=== PATIENT | female | born 1975 ===

== ENCOUNTER 2017-05-07 13:42 | Emergency (ER) | payer OTHER ==
[2017-05-07 13:50] VITALS: RESP 16
[2017-05-07] MEDS ORDERED: Sodium Chloride 0.9% 500 ML IV ONE (14:05)
--- NOTE | 2017-05-07 14:20 | ED PDOC ---
HPI: Abdomen Time Seen by Provider: 05/07/17 13:53 Chief Complaint (Nursing): Abdominal Pain Chief Complaint (Provider): Abdominal Pain History Per: Patient History/Exam Limitations: no limitations Onset/Duration Of Symptoms: Days (x2 days) Current Symptoms Are (Timing): Still Present Additional Complaint(s): 41 y/o female presents to the emergency department with a complaint of an epigastric abdominal pain x2 days. Associated with fever and vomiting. Describes pain is band-like that reaches to the right side upper back. Denies flank pain, diarrhea, constipation, dysuria, hematuria, vaginal bleeding, or discharge. Past Medical History Reviewed: Historical Data, Nursing Documentation, Vital Signs Vital Signs: Last Vital Signs Temp 100.0 F H 05/07/17 13:47 Pulse 82 05/07/17 13:47 Resp 16 05/07/17 13:47 BP 143/94 H 05/07/17 13:47 Pulse Ox 96 05/07/17 17:06 - Medical History PMH: No Chronic Diseases - Surgical History Surgical History: No Surg Hx - Family History Family History: States: Unknown Family Hx - Social History Current smoker - smoking cessation education provided: No Alcohol: None Drugs: Denies - Home Medications Home Medications: Ambulatory Orders Medication Instructions Recorded Famotidine [Pepcid] 20 mg PO BID #20 tab 12/10/14 Ondansetron [Zofran Odt] 4 mg PO Q8 #12 odt 12/18/14 Oxycodone HCl/Acetaminophen 1 tab PO Q6 PRN #12 tab 12/18/14 [Percocet 325 mg-5 mg] - Allergies Allergies/Adverse Reactions: Allergies Allergy/AdvReac Type Severity Reaction Status Date / Time No Known Allergies Allergy Verified 12/17/14 20:50 Review of Systems ROS Statement: Except As Marked, All Systems Reviewed And Found Negative Constitutional: Positive for: Fever Gastrointestinal: Positive for: Vomiting, Abdominal Pain. Negative for: Diarrhea, Constipation Genitourinary Female: Negative for: Dysuria, Vaginal Discharge, Vaginal Bleeding Musculoskeletal: Positive for: Back Pain (Right-sided Flank Pain) Physical Exam - Reviewed Nursing Documentation Reviewed: Yes Vital Signs Reviewed: Yes - Physical Exam Appears: Positive for: Non-toxic, No Acute Distress Head Exam: Positive for: ATRAUMATIC, NORMAL INSPECTION, NORMOCEPHALIC Skin: Positive for: Normal Color, Warm, Dry Neck: Positive for: Normal, Supple Cardiovascular/Chest: Positive for: Regular Rate, Rhythm. Negative for: Murmur Respiratory: Positive for: Normal Breath Sounds. Negative for: Accessory Muscle Use, Respiratory Distress Gastrointestinal/Abdominal: Positive for: Soft, Tenderness (RUQ tenderness and positive Beck's Sign). Negative for: Normal Exam - Laboratory Results Result Diagrams: 05/07/17 15:00 05/07/17 15:00 - ECG O2 Sat by Pulse Oximetry: 96 (RA) Pulse Ox Interpretation: Normal Medical Decision Making Medical Decision Making: Time: 13:59 Initial impression: RUQ Abdominal Pain concerning for cholecystitis Initial plan: CMP Lipase Magnesium Phosphorous CBC w/ diff Toradol 30 mg IVP Sodium Chloride 500 ml/hr IV Zofran 4 mg IVP Urine Preg Urinalysis Abdomen US Time: 02:58 negative. UA shows small blood (patient currently on menses) but negative leukocytes and nitrates. Time: 16:42 --Abdomen US FINDINGS: LIVER: Measures 17 cm. Hepatopedal blood flow. Fatty infiltration manifest ultrasonographically as increased echogenicity of the liver parenchyma. Complex cystic mass 12.5 x 12.8 x 13.2 cm containing debris. On the prior CT scan the mass measures 13 x 13.2 x 11.3 cm. GALLBLADDER: Cholelithiasis. Negative study for gallbladder wall thickening, pericholecystic fluid, sonographic Beck's sign.Incidental finding(s): Gallbladder sludge. COMMON BILE DUCT: Measures 4.4 mm. No stones. No dilatation. PANCREAS: Obscured by overlying bowel gas. Non diagnostic assessment of the pancreas. RIGHT KIDNEY: Measures 4.2 x 11.8cm. Normal echogenicity. No calculus, mass, or hydronephrosis. LEFT KIDNEY: Measures 5.6 x 12.6cm. Normal echogenicity. No calculus, mass, or hydronephrosis. SPLEEN: Normal in size and contour. No mass. AORTA: No aneurysmal dilatation. IVC: Unremarkable. OTHER FINDINGS: None. IMPRESSION: "Cholelithiasis. No sonographic evidence of acute cholecystitis. She approximately stable cyst occupying most of the left hepatic lobe." 5:04PM Patient reports that pain is resolved. She is tolerating po and repeat abdominal exam is soft NT/ND. Will dc Scribe Attestation: Documented by Ashely Dager, acting as a scribe for Lesa Isidro MD. Provider Scribe Attestation: All medical record entries made by the Scribe were at my direction and personally dictated by me. I have reviewed the chart and agree that the record accurately reflects my personal performance of the history, physical exam, medical decision making, and the department course for this patient. I have also personally directed, reviewed, and agree with the discharge instructions and disposition. Disposition - Clinical Impression Clinical Impression: Cholecystitis - Disposition Referrals: Charles Reich MD [Staff Provider] - Disposition: Routine/Home Disposition Time: 16:15 Condition: GOOD Additional Instructions: Follow up with general surgery for elective cholecystectomy. Return to ED if condition worsens. Instructions: Cholecystitis (ED), Gallstones (ED) Forms: [facility] (Maltese), [facility] (Mongolian) Print Language: FAROESE
[2017-05-07 15:24] LABS: BASO % 0.5 % (0.0-2.0); EOS # 0.1 K/uL (0.0-0.7); EOS % 0.8 % (0.0-4.0); HEMATOCRIT 31.7 % (34.0-47.0); LYMPH # 2.2 K/uL (1.0-4.3); LYMPH % 27.9 % (20.0-40.0); MEAN CELL VOLUME 90.3 fl (81.0-99.0); MEAN CORPUSCULAR HEMOGLOBIN 30.1 pg (27.0-31.0); MEAN CORPUSCULAR HGB CONC 33.3 g/dL (33.0-37.0); MEAN PLATELET VOLUME 7.7 fl (7.2-11.7); MONO # 0.8 K/uL (0.0-0.8); MONO % 9.9 % (0.0-10.0); NEUT # 4.7 K/uL (1.8-7.0); NEUT % 60.9 % (50.0-75.0); NRBC % 0.1 % (0.0-0.0); WHITE BLOOD COUNT 7.8 K/uL (4.8-10.8)
[2017-05-07 15:30] LABS: RBC URINE 4 /hpf (0-3); URINE BILIRUBIN NEGATIVE (NEGATIVE); URINE BLOOD SMALL (NEGATIVE); URINE COLOR AMBER (YELLOW); URINE GLUCOSE (UA) NEG (Normal); URINE KETONE NEGATIVE (NEGATIVE); URINE LEUKOCYTE ESTERASE NEG Leu/uL (Negative); URINE PROTEIN NEGATIVE (NEGATIVE); WBC URINE 3 /hpf (0-5)
[2017-05-07 15:30] LABS: ALKALINE PHOSPHATASE 109 U/L (38-126); ALT/SGPT 55 U/L (9-52); AST/SGOT 31 U/L (14-36); BLOOD UREA NITROGEN 11 mg/dl (7-17); CALCIUM 8.7 mg/dL (8.4-10.2); CARBON DIOXIDE 28 mmol/L (22-30); CHLORIDE 101 mmol/L (98-107); GFR AFRICAN-AMERICAN > 60; GLUCOSE,RANDOM 173 mg/dL (65-105); LIPASE 77 U/L (23-300); MAGNESIUM 2.1 MG/DL (1.6-2.3); PHOSPHOROUS 3.7 mg/dl (2.5-4.5); POTASSIUM 4.1 MMOL/L (3.6-5.0); SODIUM 138 mmol/l (132-148); TOTAL PROTEIN 7.5 G/DL (6.3-8.2)
--- NOTE | 2017-05-07 16:43 | US ---
HISTORY: RUQ pain COMPARISON: 12/18/2014 CT abdomen and pelvis TECHNIQUE: Sonographic evaluation of the abdomen. FINDINGS: LIVER: Measures 17 cm. Hepatopedal blood flow. Fatty infiltration manifest ultrasonographically as increased echogenicity of the liver parenchyma. Complex cystic mass 12.5 x 12.8 x 13.2 cm containing debris. On the prior CT scan the mass measures 13 x 13.2 x 11.3 cm. GALLBLADDER: Cholelithiasis. Negative study for gallbladder wall thickening, pericholecystic fluid, sonographic Beck's sign.Incidental finding(s): Gallbladder sludge. COMMON BILE DUCT: Measures 4.4 mm. No stones. No dilatation. PANCREAS: Obscured by overlying bowel gas. Non diagnostic assessment of the pancreas. RIGHT KIDNEY: Measures 4.2 x 11.8cm. Normal echogenicity. No calculus, mass, or hydronephrosis. LEFT KIDNEY: Measures 5.6 x 12.6cm. Normal echogenicity. No calculus, mass, or hydronephrosis. SPLEEN: Normal in size and contour. No mass. AORTA: No aneurysmal dilatation. IVC: Unremarkable. OTHER FINDINGS: None. IMPRESSION: Cholelithiasis. No sonographic evidence of acute cholecystitis. She approximately stable cyst occupying most of the left hepatic lobe.
[2017-05-07 17:22] VITALS: BP 134/77; PULSE 72; TEMP 99.3; O2SAT 98
== END 2017-05-07 17:29 | disposition home or self-care (01) ==
LOC: H.ER 13:42
DX: K80.20 Calculus of gallbladder without cholecystitis without obstruction (principal); R50.9 Fever, unspecified; R11.10 Vomiting, unspecified
CPT/HCPCS: 76700; 80053; 81003; 81025; 83690; 83735; 84100; 85025; 96374; 96375; 99283; J1885; J2405; J7040

== ENCOUNTER 2017-05-08 07:06 | Inpatient (IN) | payer OTHER ==
[2017-05-08] MEDS ORDERED: Sodium Chloride 0.9% 1,000 ML IV STA (07:24)
[2017-05-08] MEDS ORDERED: Iohexol 240 (50 ml) PO ONE (07:31)
--- NOTE | 2017-05-08 07:45 | ED PDOC ---
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 denies: Diarrhea Exacerbating Factors: None Alleviating Factors: None Last Bowel Movement: Today Additional Complaint(s): 41yo female represents to ED with RUQ and upper abd pain, now associated w chills, nausea/vomiting. States was seen in ED yesterday told she had gallstones , felt better on discharge but pain returned at 3am, chills started shortly thereafter. Past Medical History Reviewed: Historical Data, Nursing Documentation, Vital Signs Vital Signs: Last Vital Signs Temp 101.2 F H 05/08/17 08:01 Pulse 95 H 05/08/17 07:19 Resp 16 05/08/17 07:19 BP 117/73 05/08/17 07:19 Pulse Ox 98 05/08/17 07:46 - Medical History PMH: No Chronic Diseases - Surgical History Surgical History: No Surg Hx - Family History Family History: States: Unknown Family Hx - Living Arrangements Living Arrangements: With Family - Social History Current smoker - smoking cessation education provided: No - Home Medications Home Medications: Ambulatory Orders Medication Instructions Recorded Famotidine [Pepcid] 20 mg PO BID #20 tab 12/10/14 Ondansetron [Zofran Odt] 4 mg PO Q8 #12 odt 12/18/14 Oxycodone HCl/Acetaminophen 1 tab PO Q6 PRN #12 tab 12/18/14 [Percocet 325 mg-5 mg] - Allergies Allergies/Adverse Reactions: Allergies Allergy/AdvReac Type Severity Reaction Status Date / Time No Known Allergies Allergy Verified 05/08/17 07:19 Review of Systems Constitutional: Positive for: Chills, Weakness Cardiovascular: Negative for: Chest Pain, Palpitations Respiratory: Negative for: Cough, Shortness of Breath Gastrointestinal: Positive for: Nausea, Vomiting, Abdominal Pain. Negative for : Diarrhea, Hematochezia, Hematemesis Genitourinary Female: Negative for: Dysuria Musculoskeletal: Positive for: Back Pain. Negative for: Neck Pain, Shoulder Pain Skin: Negative for: Rash, Lesions, Jaundice Neurological: Negative for: Weakness, Numbness, Dizziness Physical Exam - Reviewed Nursing Documentation Reviewed: Yes Vital Signs Reviewed: Yes - Physical Exam Appears: Positive for: No Acute Distress, Uncomfortable (+rigors) Head Exam: Positive for: ATRAUMATIC, NORMAL INSPECTION, NORMOCEPHALIC Skin: Positive for: Normal Color, Warm, DRY Eye Exam: Positive for: Normal appearance, EOMI, PERRL. Negative for: Scleral icterus ENT: Positive for: Normal ENT Inspection Neck: Positive for: Normal, Painless ROM Cardiovascular/Chest: Positive for: Regular Rate, Rhythm Respiratory: Positive for: CNT, Normal Breath Sounds Gastrointestinal/Abdominal: Positive for: Bowel Sounds, Soft, Tenderness (RUQ/ mid abdomen). Negative for: Distended, Rebound Back: Positive for: Normal Inspection Extremity: Positive for: Normal ROM Neurologic/Psych: Positive for: Alert, Oriented. Negative for: Motor/Sensory Deficits - Laboratory Results Result Diagrams: 05/08/17 08:20 05/08/17 08:20 - ECG O2 Sat by Pulse Oximetry: 98 Medical Decision Making Medical Decision Making: given fever, known hx gallstones, workup for sepsis initiated w bloodwork, cultures, lactate, CT abd pelv and IVF/antiemetic/ pain control/ tylenol. Labs reviewed Initial lactate elevated 2.1 WBC normal Alk Phos trending up from yesterday CT imaging reveals cholelithiasis and very large cyst in liver. I discussed w radiologist Dr Xiong- does not appear infected as homogenous, no septations, thin walled. Unclear chronicity of cyst. Discussed w Dr Corrales, may need hepatobiliary specialist- admit hospitalist Dr Wright. Zosyn initiated after cultures obtained. Repeat 3hr lactate improving. Disposition - Clinical Impression Clinical Impression: Severe sepsis, Cholelithiasis, Hepatic cyst - Patient ED Disposition Is Patient to be Admitted: Yes Counseled Patient/Family Regarding: Studies Performed, Diagnosis - Disposition Disposition Time: 09:35 Condition: FAIR - Pt Status Changed To: Hospital Disposition Of: Inpatient - Admit Certification Admit to Inpatient:: After my assessment, the patient will require hospitalization for at least two midnights. This is because of the severity of symptoms shown, intensity of services needed, and/or the medical risk in this patient being treated as an outpatient. - POA Present On Arrival: None
[2017-05-08 07:58] LABS: VENOUS BLOOD GAS BASE EXCESS 2.8 mmol/L (0.0-2.0); VENOUS BLOOD GAS PCO2 52 mmHg (40-60); VENOUS BLOOD PH 7.36 (7.32-7.43)
[2017-05-08 08:32] LABS: BASO % 0.3 % (0.0-2.0); EOS % 0.3 % (0.0-4.0); LYMPH % 10.3 % (20.0-40.0); MEAN PLATELET VOLUME 7.8 fl (7.2-11.7); MONO # 0.3 K/uL (0.0-0.8); MONO % 3.1 % (0.0-10.0); NEUT # 8.3 K/uL (1.8-7.0); WHITE BLOOD COUNT 9.7 K/uL (4.8-10.8)
[2017-05-08] MEDS ORDERED: Iohexol 300 100 ML IJ ONE (08:43)
[2017-05-08] MEDS ORDERED: Sodium Chloride 0.9% 50 ML IV ONE (08:44)
[2017-05-08 08:46] LABS: ALKALINE PHOSPHATASE 147 U/L (38-126); ALT/SGPT 49 U/L (9-52); AST/SGOT 36 U/L (14-36); BILIRUBIN,TOTAL 1.2 mg/dl (0.2-1.3); BLOOD UREA NITROGEN 9 mg/dl (7-17); CALCIUM 8.9 mg/dL (8.4-10.2); CARBON DIOXIDE 25 mmol/L (22-30); CHLORIDE 102 mmol/L (98-107); GFR AFRICAN-AMERICAN > 60; GLUCOSE,RANDOM 183 mg/dL (65-105); LIPASE 100 U/L (23-300); POTASSIUM 4.4 MMOL/L (3.6-5.0); SODIUM 141 mmol/l (132-148)
--- NOTE | 2017-05-08 09:37 | CT ---
PROCEDURE: CT abdomen pelvis dated 05/08/2017. HISTORY: RUQ pain, rigors, gallstones on US COMPARISON: Comparison made with prior CT scan abdomen pelvis 12/18/2014 TECHNIQUE: Contiguous axial images of the abdomen and pelvis performed in standard fashion following oral and intravenous injection of approximately 99 cc Omnipaque 300 contrast material. . Coronal and Sagittal reformats generated. This CT exam was performed using one or more of the following dose reduction techniques: Automated exposure control, adjustment of the mA and/or kV according to patient size, and/or use of iterative reconstruction technique. Radiation dose: Total exam DLP = 2335.35 mGy-cm. FINDINGS: LOWER THORAX: Lung bases are clear. No infiltrate effusion or basilar pneumothorax. LIVER: Re- demonstrated is a large elliptical shaped unilocular cyst left lobe liver that measures approximately 13.4 x 11.8 x 13.2 cm. . The cyst is surrounded by a thin wall with no evidence of internal septations, calcifications or nodularity. . Liver is mildly enlarged measuring approximately 22.55 cm in CC dimension. Mild diffuse fatty hepatic infiltration. GALLBLADDER AND BILE DUCTS: Multiple tiny intraluminal gallbladder calculi again noted. PANCREAS: The previously noted small 3 mm low-attenuation focus tail of the pancreas is not appreciated on this exam. . SPLEEN: The spleen exhibits normal size and attenuation pattern without mass collection or calcification. ADRENALS: No adrenal lesions. KIDNEYS AND URETERS: Kidneys demonstrate symmetric size. No evidence of nephrolithiasis or hydronephrosis. BLADDER: Urinary bladder is incompletely distended which presumably accounts for thick-walled appearance. Possibility of a cystitis not excluded. REPRODUCTIVE: Uterus unremarkable. APPENDIX: Normal appendix. BOWEL: The evaluation of the bowel is limited due to incomplete opacification. Stomach is distended with oral contrast material and air. Visualized loops small bowel exhibit normal contour and caliber. No evidence acute mechanical small bowel obstruction. Stool and air seen throughout the colon. No definitive mural wall thickening. PERITONEUM: No evidence of free intraperitoneal air or fluid. Previously noted free fluid within the pelvis on prior CT scan resolved. Small fat containing umbilical hernia again noted. LYMPH NODES: Unremarkable. No enlarged lymph nodes. VASCULATURE: Unremarkable. No aortic aneurysm. BONES: No fracture or destructive lesion. OTHER FINDINGS: None. IMPRESSION: Large slightly elliptical shaped the unilocular shaped cyst left lobe liver essentially unchanged from prior study. Hepatomegaly with mild fatty hepatic infiltration. Cholelithiasis. Small fat containing ventral wall hernia.
[2017-05-08 10:01] LABS: RBC URINE 11 /hpf (0-3); URINE BILIRUBIN NEGATIVE (NEGATIVE); URINE BLOOD MODERATE (NEGATIVE); URINE COLOR YELLOW (YELLOW); URINE GLUCOSE (UA) NEG (Normal); URINE KETONE NEGATIVE (NEGATIVE); URINE LEUKOCYTE ESTERASE NEG Leu/uL (Negative); URINE PROTEIN NEGATIVE (NEGATIVE)
[2017-05-08] MEDS ORDERED: Piperacillin/Tazobact 4.5 GM in Sodium Chloride 0.9% 100 ML IVPB STA (10:02)
[2017-05-08 11:00] LABS: VENOUS BLOOD GAS PCO2 40 mmHg (40-60); VENOUS BLOOD PH 7.43 (7.32-7.43)
--- NOTE | 2017-05-08 11:38 | CP.PCM.HP ---
History of Present Illness - History of Present Illness History of Present Illness: 41 yo female with no significant PMH came in complaining of persistent RUQ and epigastric pain radiating to the back since 5 days ago accompanied with fever and nausea. She was seen in the ER yesterday and was discharged with a diagnosis of cholecystitis. She was advised to follow up with Dr Reich for an elective cholecystectomy. Her condition did not improved and now came back to the ER with diaphoresis accompanied with fever, abdominal pain and nausea. Present on Admission - Present on Admission Any Indicators Present on Admission: No History of DVT/PE: No History of Uncontrolled Diabetes: No Urinary Catheter: No Decubitus Ulcer Present: No Review of Systems - Review of Systems All systems: reviewed and no additional remarkable complaints except (aside from those mentioned above, 12 point system review were negative by me) Past Patient History - Tetanus Immunizations Tetanus Immunization: Unknown - Past Medical History & Family History Past Medical History?: No Past Family History: Reviewed and not pertinent - Past Social History Smoking Status: Never Smoked Alcohol: None Drugs: Denies Home Situation {Lives}: With Family - CARDIAC Hx Cardiac Disorders: No - PULMONARY Hx Respiratory Disorders: No - NEUROLOGICAL Hx Neurological Disorder: No - HEENT Hx HEENT Problems: No - RENAL Hx Chronic Kidney Disease: No - ENDOCRINE/METABOLIC Hx Endocrine Disorders: No - HEMATOLOGICAL/ONCOLOGICAL Hx Blood Disorders: No - INTEGUMENTARY Hx Dermatological Problems: No - MUSCULOSKELETAL/RHEUMATOLOGICAL Hx Musculoskeletal Disorders: No - GASTROINTESTINAL Hx Gastrointestinal Disorders: No Other/Comment: cholelithiasis - GENITOURINARY/GYNECOLOGICAL Hx Genitourinary Disorders: No - PSYCHIATRIC Hx Psychophysiologic Disorder: No Hx Substance Use: No - SURGICAL HISTORY Hx Surgeries: No - ANESTHESIA Hx Anesthesia: No Meds Allergies/Adverse Reactions: Allergies Allergy/AdvReac Type Severity Reaction Status Date / Time No Known Allergies Allergy Verified 05/08/17 07:19 Physical Exam - Constitutional Appears: No Acute Distress - Head Exam Head Exam: ATRAUMATIC - Eye Exam Eye Exam: absent: Scleral icterus - ENT Exam ENT Exam: Mucous Membranes Moist - Neck Exam Neck exam: Negative for: Meningismus - Respiratory Exam Respiratory Exam: absent: Rhonchi, Wheezes, Respiratory Distress - Cardiovascular Exam Cardiovascular Exam: REGULAR RHYTHM, +S1, +S2 - GI/Abdominal Exam GI & Abdominal Exam: Soft, Tenderness (tenderness on palpation mainly on epigastric region). absent: Guarding, Rebound - Rectal Exam Rectal Exam: Deferred - Extremities Exam Extremities exam: Negative for: calf tenderness, pedal edema - Back Exam Back exam: NORMAL INSPECTION - Neurological Exam Neurological exam: Alert, Oriented x3 - Psychiatric Exam Psychiatric exam: Normal Affect - Skin Skin Exam: Dry, Intact Results - Vital Signs Recent Vital Signs: Last Vital Signs Temp 101.2 F H 05/08/17 08:01 Pulse 95 H 05/08/17 07:19 Resp 16 05/08/17 07:19 BP 117/73 05/08/17 07:19 Pulse Ox 98 05/08/17 11:21 - Labs Result Diagrams: 05/08/17 08:20 05/08/17 08:20 Labs: Laboratory Results - last 24 hr 05/08/17 10:55 pO2 55 VBG pH 7.43 VBG pCO2 40 VBG HCO3 26.3 VBG Total CO2 27.7 VBG O2 Sat (Calc) 95.4 H VBG Base Excess 2.0 VBG Potassium 3.8 Sodium 135.0 Chloride 103.0 Glucose 164 H Lactate 0.7 FiO2 21.0 Venous Blood Potassium 3.8 Assessment & Plan (1) Sepsis Status: Acute Comment: admit to telemetry. blood culture x 2. Zosyn 3.375gm IV q 6hrs. Flagyl 500mg IV q 8hrs (2) Cholecystitis Status: Acute Comment: Morphine 2mg IV q 4hrs prn for pain. zofran 4mg IV q 4hrs prn for nausea. continue Zosyn and Flagyl. surgical consult with Dr Reich (3) DVT prophylaxis Status: Acute Comment: venodyne boots while on bed
[2017-05-08] MEDS: Piperacillin/Tazobact 3.375 GM in Sodium Chloride 0.9% 100 ML IVPB SCH ×2 (15:13→22:18)
[2017-05-08] MEDS: metroNIDAZOLE 500mg/100ml NS 100 ML IVPB SCH ×2 (15:13→17:01)
[2017-05-08] MEDS: Sodium Chloride 0.9% 1,000 ML IV SCH ×2 (16:41→22:16)
--- NOTE | 2017-05-08 19:01 | CP.PCM.CON ---
<Sukhjinder Francis - Last Filed: 05/08/17 18:56> History of Present Illness - History of Present Illness History of Present Illness: Surgery 41 yo female with no significant PMH came in complaining of persistent RUQ and epigastric pain radiating to the back that started yesterday. accompanied with fever and nausea. She was seen in the ER yesterday and was discharged with a diagnosis of cholecystitis. She was advised to follow up with Dr Reich for an elective cholecystectomy. Her condition did not improved and now came back to the ER with diaphoresis accompanied with fever, abdominal pain, nausea and vomiting. Non bilious non bloody. Denies D/sick contact/ recent travel/CP/SOB. Pt is from [place]. Reports that this is the first time having these symptoms. Pt had fever of 101.2. CT of abd shows large 14cm uniloculated liver cyst and gallstones. Fat containing ventral hernia. Tibili is 1.4. Surgery is consulted to evaluate for cholecystitis and liver cyst Review of Systems - Review of Systems Review of Systems: See HPI Past Patient History - Tetanus Immunizations Tetanus Immunization: Unknown - Past Medical History & Family History Past Medical History?: No - Past Social History Smoking Status: Never Smoked - CARDIAC Hx Cardiac Disorders: No - PULMONARY Hx Respiratory Disorders: No - NEUROLOGICAL Hx Neurological Disorder: No - HEENT Hx HEENT Problems: No - RENAL Hx Chronic Kidney Disease: No - ENDOCRINE/METABOLIC Hx Endocrine Disorders: No - HEMATOLOGICAL/ONCOLOGICAL Hx Blood Disorders: No - INTEGUMENTARY Hx Dermatological Problems: No - MUSCULOSKELETAL/RHEUMATOLOGICAL Hx Musculoskeletal Disorders: No Hx Falls: No - GASTROINTESTINAL Hx Gastrointestinal Disorders: No Other/Comment: cholelithiasis - GENITOURINARY/GYNECOLOGICAL Hx Genitourinary Disorders: No - PSYCHIATRIC Hx Psychophysiologic Disorder: No Hx Substance Use: No - SURGICAL HISTORY Hx Surgeries: No - ANESTHESIA Hx Anesthesia: No Meds Allergies/Adverse Reactions: Allergies Allergy/AdvReac Type Severity Reaction Status Date / Time No Known Allergies Allergy Verified 05/08/17 07:19 - Medications Medications: Current Medications Acetaminophen (Tylenol 650 Mg Supp) 650 mg [place] Q6 PRN PRN Reason: Fever >100.4 F Hydromorphone HCl (Dilaudid) 1 mg IVP Q4 PRN PRN Reason: Pain, moderate (4-7) Last Admin: 05/08/17 16:39 Dose: 1 mg Piperacillin Sod/Tazobactam (Sod 3.375 gm/ Sodium Chloride) 100 mls @ 100 mls/ hr IVPB Q6 [facility] Last Admin: 05/08/17 15:13 Dose: 100 mls/hr Metronidazole (Flagyl 500mg/100ml Ns) 100 mls @ 100 mls/hr IVPB Q8 [facility] Last Admin: 05/08/17 17:01 Dose: Not Given Sodium Chloride (Sodium Chloride 0.9%) 1,000 mls @ 150 mls/hr IV .Q6H40M [facility] Stop: 05/09/17 13:54 Last Admin: 05/08/17 16:41 Dose: 150 mls/hr Ondansetron HCl (Zofran Inj) 4 mg IVP Q6 PRN PRN Reason: Nausea/Vomiting Last Admin: 05/08/17 13:25 Dose: 4 mg Pantoprazole Sodium (Protonix Inj) 40 mg IVP DAILY [facility] Physical Exam - Constitutional Appears: In Acute Distress - Head Exam Head Exam: ATRAUMATIC, NORMAL INSPECTION, NORMOCEPHALIC - Eye Exam Eye Exam: EOMI, Normal appearance, PERRL Pupil Exam: NORMAL ACCOMODATION, PERRL - ENT Exam ENT Exam: Mucous Membranes Moist, Normal Exam - Neck Exam Neck exam: Positive for: Normal Inspection - Respiratory Exam Respiratory Exam: Clear to Auscultation Bilateral, NORMAL BREATHING PATTERN - Cardiovascular Exam Cardiovascular Exam: REGULAR RHYTHM - GI/Abdominal Exam GI & Abdominal Exam: Normal Bowel Sounds, Soft, Tenderness. absent: Distended, Firm, Guarding Additional comments: RUQ TTP - Extremities Exam Extremities exam: Positive for: normal inspection - Back Exam Back exam: NORMAL INSPECTION, tenderness. absent: CVA tenderness (L), CVA tenderness (R) - Neurological Exam Neurological exam: Alert, CN II-XII Intact, Normal Gait, Oriented x3, Reflexes Normal - Psychiatric Exam Psychiatric exam: Normal Affect, Normal Mood - Skin Skin Exam: Diaphoretic, Intact, Normal Color, Warm Results - Vital Signs Recent Vital Signs: Last Vital Signs Temp 98.6 F 05/08/17 17:36 Pulse 72 05/08/17 17:36 Resp 20 05/08/17 17:36 BP 137/83 05/08/17 17:36 Pulse Ox 97 05/08/17 17:36 - Labs Result Diagrams: 05/08/17 08:20 05/08/17 08:20 Labs: Laboratory Results - last 24 hr 05/08/17 10:55 pO2 55 VBG pH 7.43 VBG pCO2 40 VBG HCO3 26.3 VBG Total CO2 27.7 VBG O2 Sat (Calc) 95.4 H VBG Base Excess 2.0 VBG Potassium 3.8 Sodium 135.0 Chloride 103.0 Glucose 164 H Lactate 0.7 FiO2 21.0 Venous Blood Potassium 3.8 Assessment & Plan - Assessment and Plan (Free Text) Assessment: RUQ pain 2/2 ch[address] : large liver cyst , gallstones, dilated GB Febrile -Hepatobiliary surgery consult to evaluate liver cyst: r/o echinoccocal cyst, hemangioma -MRI of the liver -Echinococcus antibody -Monitor labs -ABX -IVF DW attending <Charles Reich - Last Filed: 05/08/17 21:14> Meds - Medications Medications: Current Medications Acetaminophen (Tylenol 650 Mg Supp) 650 mg [place] Q6 PRN PRN Reason: Fever >100.4 F Hydromorphone HCl (Dilaudid) 1 mg IVP Q4 PRN PRN Reason: Pain, moderate (4-7) Last Admin: 05/08/17 16:39 Dose: 1 mg Piperacillin Sod/Tazobactam (Sod 3.375 gm/ Sodium Chloride) 100 mls @ 100 mls/ hr IVPB Q6 [facility] Last Admin: 05/08/17 15:13 Dose: 100 mls/hr Metronidazole (Flagyl 500mg/100ml Ns) 100 mls @ 100 mls/hr IVPB Q8 [facility] Last Admin: 05/08/17 17:01 Dose: Not Given Sodium Chloride (Sodium Chloride 0.9%) 1,000 mls @ 150 mls/hr IV .Q6H40M [facility] Stop: 05/09/17 13:54 Last Admin: 05/08/17 16:41 Dose: 150 mls/hr Ondansetron HCl (Zofran Inj) 4 mg IVP Q6 PRN PRN Reason: Nausea/Vomiting Last Admin: 05/08/17 13:25 Dose: 4 mg Pantoprazole Sodium (Protonix Inj) 40 mg IVP DAILY [facility] Results - Vital Signs Recent Vital Signs: Last Vital Signs Temp 98.6 F 05/08/17 17:36 Pulse 88 05/08/17 20:32 Resp 20 05/08/17 17:36 BP 137/83 05/08/17 17:36 Pulse Ox 97 05/08/17 17:36 - Labs Result Diagrams: 05/08/17 08:20 05/08/17 08:20 Labs: Laboratory Results - last 24 hr 05/08/17 10:55 pO2 55 VBG pH 7.43 VBG pCO2 40 VBG HCO3 26.3 VBG Total CO2 27.7 VBG O2 Sat (Calc) 95.4 H VBG Base Excess 2.0 VBG Potassium 3.8 Sodium 135.0 Chloride 103.0 Glucose 164 H Lactate 0.7 FiO2 21.0 Venous Blood Potassium 3.8 Attending/Attestation - Attestation I have personally seen and examined this patient.: Yes I have fully participated in the care of the patient.: Yes I have reviewed all pertinent clinical information: Yes Notes (Text): 05/08/17 21:13 Pt was seen and examined at bedside Agree with above note and assessment Pt with Cholelithiasis and Large Liver Cyst Labs and radiology reviewed. Repeat LFTs IV antibiotics Consult Hepatobilliary surgeon Plan d.w pt in detail Risk and benefit explained in detail.
[2017-05-09] MEDS: metroNIDAZOLE 500mg/100ml NS 100 ML IVPB SCH ×3 (00:44→16:34)
[2017-05-09] MEDS: Piperacillin/Tazobact 3.375 GM in Sodium Chloride 0.9% 100 ML IVPB SCH ×4 (03:18→22:28)
[2017-05-09 08:00] LABS: BASO % 0.2 % (0.0-2.0); EOS % 0.1 % (0.0-4.0); HEMATOCRIT 33.3 % (34.0-47.0); LYMPH # 1.1 K/uL (1.0-4.3); LYMPH % 8.4 % (20.0-40.0); MEAN CELL VOLUME 90.9 fl (81.0-99.0); MEAN CORPUSCULAR HEMOGLOBIN 29.1 pg (27.0-31.0); MEAN CORPUSCULAR HGB CONC 32.1 g/dL (33.0-37.0); MEAN PLATELET VOLUME 8.1 fl (7.2-11.7); MONO # 1.2 K/uL (0.0-0.8); MONO % 9.5 % (0.0-10.0); NEUT # 10.3 K/uL (1.8-7.0); NEUT % 81.8 % (50.0-75.0); PLATELET COUNT 304 K/uL (130-400); RED CELL DISTRIBUTION WIDTH 13.8 % (11.5-14.5); WHITE BLOOD COUNT 12.6 K/uL (4.8-10.8)
--- NOTE | 2017-05-09 09:56 | CP.PCM.PN ---
<Sukhjinder Francis - Last Filed: 05/09/17 09:53> Subjective - Date & Time of Evaluation Date of Evaluation: 05/09/17 Time of Evaluation: 09:54 - Subjective Subjective: Surgery Pt s&e. Pt is febrile. Denies N/V/D/CP/SOB. Pain controlled. + amb. + void. TOlerating CLD. Objective - Vital Signs/Intake and Output Vital Signs (last 24 hours): Temp Pulse Resp BP Pulse Ox 99.3 F 91 H 20 121/78 94 L 05/09/17 08:53 05/09/17 08:53 05/09/17 08:53 05/09/17 08:53 05/09/17 08:53 - Medications Medications: Current Medications Acetaminophen (Tylenol 650 Mg Supp) [address] Q6 PRN PRN Reason: Fever >100.4 F Hydromorphone HCl (Dilaudid) 1 mg IVP Q4 PRN PRN Reason: Pain, moderate (4-7) Last Admin: 05/09/17 05:45 Dose: 1 mg Piperacillin Sod/Tazobactam (Sod 3.375 gm/ Sodium Chloride) 100 mls @ 100 mls/ hr IVPB Q6 [facility] Last Admin: 05/09/17 03:18 Dose: 100 mls/hr Metronidazole (Flagyl 500mg/100ml Ns) 100 mls @ 100 mls/hr IVPB Q8 [facility] Last Admin: 05/09/17 00:44 Dose: 100 mls/hr Sodium Chloride (Sodium Chloride 0.9%) 1,000 mls @ 150 mls/hr IV .Q6H40M [facility] Stop: 05/09/17 13:54 Last Admin: 05/08/17 22:16 Dose: 150 mls/hr Ondansetron HCl (Zofran Inj) 4 mg IVP Q6 PRN PRN Reason: Nausea/Vomiting Last Admin: 05/08/17 22:21 Dose: 4 mg Pantoprazole Sodium (Protonix Inj) 40 mg IVP DAILY [facility] - Labs Labs: 05/09/17 05:30 - Constitutional Appears: No Acute Distress - Head Exam Head Exam: ATRAUMATIC, NORMAL INSPECTION, NORMOCEPHALIC - Eye Exam Eye Exam: EOMI, Normal appearance, PERRL Pupil Exam: NORMAL ACCOMODATION, PERRL - ENT Exam ENT Exam: Mucous Membranes Moist, Normal Exam - Neck Exam Neck Exam: Full ROM, Normal Inspection. absent: Lymphadenopathy - Respiratory Exam Respiratory Exam: Clear to Ausculation Bilateral, NORMAL BREATHING PATTERN - Cardiovascular Exam Cardiovascular Exam: REGULAR RHYTHM, +S1, +S2. absent: Murmur - GI/Abdominal Exam GI & Abdominal Exam: Soft, Tenderness, Normal Bowel Sounds. absent: Distended, Firm Additional comments: Epigastric TTP - Extremities Exam Extremities Exam: Full ROM, Normal Capillary Refill, Normal Inspection. absent : Joint Swelling, Pedal Edema - Back Exam Back Exam: NORMAL INSPECTION - Neurological Exam Neurological Exam: Alert, Awake, CN II-XII Intact, Normal Gait, Oriented x3 - Psychiatric Exam Psychiatric exam: Normal Affect, Normal Mood - Skin Skin Exam: Dry, Intact, Normal Color, Warm Assessment and Plan - Assessment and Plan (Free Text) Assessment: abd pain 2/2 cholelithiasis v Liver cyst CT : large liver cyst , gallstones, dilated GB Febrile Mild leukocytosis -Hepatobiliary surgery consult to evaluate liver cyst: r/o echinoccocal cyst, hemangioma -MRI of the liver -Echinococcus antibody -Monitor labs: CBC , LFT -ABX -IVF DW attending <Charles Reich - Last Filed: 05/09/17 14:20> Objective - Vital Signs/Intake and Output Vital Signs (last 24 hours): Temp Pulse Resp BP Pulse Ox 98.9 F 83 20 111/72 93 L 05/09/17 13:09 05/09/17 13:09 05/09/17 13:09 05/09/17 13:09 05/09/17 13:09 - Medications Medications: Current Medications Acetaminophen (Tylenol 650 Mg Supp) [address] Q6 PRN PRN Reason: Fever >100.4 F Hydromorphone HCl (Dilaudid) 1 mg IVP Q4 PRN PRN Reason: Pain, moderate (4-7) Last Admin: 05/09/17 10:38 Dose: 1 mg Piperacillin Sod/Tazobactam (Sod 3.375 gm/ Sodium Chloride) 100 mls @ 100 mls/ hr IVPB Q6 [facility] Last Admin: 05/09/17 10:24 Dose: 100 mls/hr Metronidazole (Flagyl 500mg/100ml Ns) 100 mls @ 100 mls/hr IVPB Q8 [facility] Vancomycin HCl 1 gm/ Sodium (Chloride) 250 mls @ 166.667 mls/hr IVPB Q12 [facility] Ondansetron HCl (Zofran Inj) 4 mg IVP Q6 PRN PRN Reason: Nausea/Vomiting Last Admin: 05/08/17 22:21 Dose: 4 mg Pantoprazole Sodium (Protonix Inj) 40 mg IVP DAILY [facility] Last Admin: 05/09/17 10:23 Dose: 40 mg - Labs Labs: 05/09/17 05:30 05/09/17 11:05 Attending/Attestation - Attestation I have personally seen and examined this patient.: Yes I have fully participated in the care of the patient.: Yes I have reviewed all pertinent clinical information, including history, physical exam and plan: Yes Notes (Text): 05/09/17 14:19 Pt was seen and examined at bedside Agree with above note and assessment Pt with Cholelithiasis and Liver Cyst MRI/MRCP Repeat LFTs and Lipase NPO, IVF IV antibiotics Plan d/w pt in detail Risk and benefit explained in detail.
[2017-05-09] MEDS: Sodium Chloride 0.9% 1,000 ML IV SCH (10:25)
[2017-05-09 11:03] LABS: NEUTROPHIL 85 % (42-75); TOTAL CELLS COUNTED 100
[2017-05-09 11:52] LABS: ALB/GLOB RATIO 0.9 (1.0-2.1); ALKALINE PHOSPHATASE 170 U/L (38-126); ALT/SGPT 71 U/L (9-52); AST/SGOT 77 U/L (14-36); BILIRUBIN,TOTAL 1.8 mg/dl (0.2-1.3); BLOOD UREA NITROGEN 10 mg/dl (7-17); CALCIUM 8.7 mg/dL (8.4-10.2); CARBON DIOXIDE 27 mmol/L (22-30); CHLORIDE 102 mmol/L (98-107); GFR AFRICAN-AMERICAN > 60; GLUCOSE,RANDOM 138 mg/dL (65-105); SODIUM 139 mmol/l (132-148); TOTAL PROTEIN 7.6 G/DL (6.3-8.2)
--- NOTE | 2017-05-09 12:55 | CP.PCM.PN ---
Subjective - Date & Time of Evaluation Date of Evaluation: 05/09/17 Time of Evaluation: 12:40 - Subjective Subjective: continues to complain of mild pain midepigastric radiating to shoulder tolerating liquid diet HD stable. afebrile. WBC trending up, as well as LFTs and TBILI. added Vancomycin for additional coverage no other complaints at [facility] for MRI liver per surgery Objective - Vital Signs/Intake and Output Vital Signs (last 24 hours): Temp Pulse Resp BP Pulse Ox 99.3 F 91 H 20 121/78 94 L 05/09/17 08:53 05/09/17 08:53 05/09/17 08:53 05/09/17 08:53 05/09/17 08:53 GEN: WDWN, ALERT, COOPERATIVE HEENT: NCAT, PERRL, EOMI HEART: +S1+S2, RRR NO MRG LUNG: CTAB, NO WRR ABD: SOFT BSX4 tender midepigastrium. ND NO HSM NO MASS EXT: WARM, WELL PERFUSED NEURO: AA0X3, STRENGTH AND SENSATION EQUAL AND BILATERAL SKIN: WARM DRY PSYCH: NORMAL MOOD NORMAL AFFECT - Medications Medications: Current Medications Acetaminophen (Tylenol 650 Mg Supp) 650 mg [place] Q6 PRN PRN Reason: Fever >100.4 F Hydromorphone HCl (Dilaudid) 1 mg IVP Q4 PRN PRN Reason: Pain, moderate (4-7) Last Admin: 05/09/17 10:38 Dose: 1 mg Piperacillin Sod/Tazobactam (Sod 3.375 gm/ Sodium Chloride) 100 mls @ 100 mls/ hr IVPB Q6 [facility] Last Admin: 05/09/17 10:24 Dose: 100 mls/hr Sodium Chloride (Sodium Chloride 0.9%) 1,000 mls @ 150 mls/hr IV .Q6H40M [facility] Stop: 05/09/17 13:54 Last Admin: 05/09/17 10:25 Dose: 150 mls/hr Ondansetron HCl (Zofran Inj) 4 mg IVP Q6 PRN PRN Reason: Nausea/Vomiting Last Admin: 05/08/17 22:21 Dose: 4 mg Pantoprazole Sodium (Protonix Inj) 40 mg IVP DAILY [facility] Last Admin: 05/09/17 10:23 Dose: 40 mg - Labs Labs: 05/09/17 05:30 05/09/17 11:05 Assessment and Plan - Assessment and Plan (Free Text) Plan: 41 yo female with no significant PMH came in complaining of persistent RUQ and epigastric pain radiating to the back since 5 days ago accompanied with fever and nausea. She was seen in the ER yesterday and was discharged with a diagnosis of cholecystitis. She was advised to follow up with Dr Reich for an elective cholecystectomy. Her condition did not improved and now came back to the ER with diaphoresis accompanied with fever, abdominal pain and nausea. CT ABDPEL: L slightly elliptical shaped unilocular cyst left lobe liver, unchanged from prior study. Cholelithiasis. Sepsis 2/2 cholecystitis AFEBRILE, mild pain midepigastric radiating to shoulder however WBC trending up, LFTs also trending up mildly 77/71 TBILI elevated today 1.8, normal yesterday blood culture x 2. No growth urine cx <42995 gm+cocci Zosyn 3.375gm IV q 6hrs. Flagyn 500 mg q8H. added Vancomycin today for worsening WBC, LFTs for coverage. Morphine 2mg IV q 4hrs prn for pain. zofran 4mg IV q 4hrs prn for nausea. surgical consult with Dr Reich Liver Cyst Hepatobiliary Surgical Consult with Dr. Apple MRI Abd/Liver w contrast for cyst, per surgery concern for echinococcal cyst vs. hemangioma DVT prophylaxis Status: Acute Comment: venodyne boots while on bed
[2017-05-10] MEDS: metroNIDAZOLE 500mg/100ml NS 100 ML IVPB SCH ×2 (00:18→09:06)
[2017-05-10] MEDS: Piperacillin/Tazobact 3.375 GM in Sodium Chloride 0.9% 100 ML IVPB SCH (03:29)
[2017-05-10 07:06] LABS: BASO % 0.4 % (0.0-2.0); EOS % 0.9 % (0.0-4.0); HEMATOCRIT 34.5 % (34.0-47.0); LYMPH # 0.8 K/uL (1.0-4.3); LYMPH % 22.2 % (20.0-40.0); MEAN CELL VOLUME 91.7 fl (81.0-99.0); MEAN CORPUSCULAR HEMOGLOBIN 30.1 pg (27.0-31.0); MEAN CORPUSCULAR HGB CONC 32.9 g/dL (33.0-37.0); MEAN PLATELET VOLUME 7.7 fl (7.2-11.7); MONO % 0.8 % (0.0-10.0); NEUT # 2.6 K/uL (1.8-7.0); NEUT % 75.7 % (50.0-75.0); NRBC % 0.1 % (0.0-0.0); WHITE BLOOD COUNT 3.4 K/uL (4.8-10.8)
[2017-05-10 07:18] LABS: ALB/GLOB RATIO 0.9 (1.0-2.1); ALKALINE PHOSPHATASE 205 U/L (38-126); ALT/SGPT 61 U/L (9-52); AST/SGOT 44 U/L (14-36); BILIRUBIN,TOTAL 1.5 mg/dl (0.2-1.3); BLOOD UREA NITROGEN 12 mg/dl (7-17); CALCIUM 8.9 mg/dL (8.4-10.2); CARBON DIOXIDE 28 mmol/L (22-30); CHLORIDE 105 mmol/L (98-107); GFR AFRICAN-AMERICAN > 60; GLUCOSE,RANDOM 120 mg/dL (65-105); POTASSIUM 4.2 MMOL/L (3.6-5.0); SODIUM 142 mmol/l (132-148); TOTAL PROTEIN 7.8 G/DL (6.3-8.2)
--- NOTE | 2017-05-10 07:59 | CP.PCM.PN ---
<JaunNancy - Last Filed: 05/10/17 07:56> Subjective - Date & Time of Evaluation Date of Evaluation: 05/10/17 Time of Evaluation: 07:56 - Subjective Subjective: General Surgery - Dr. Reich Pt S&E. SONJA. Pt still with RUQ pain. She is tolerating liquid diet. No N/V , F/C, SOb/CP. She will go for MRCP today to further evaluate liver cyst. Objective - Vital Signs/Intake and Output Vital Signs (last 24 hours): Temp Pulse Resp BP Pulse Ox 99.1 F 84 18 123/76 96 05/10/17 05:00 05/10/17 05:00 05/10/17 05:00 05/10/17 05:00 05/10/17 05:00 - Medications Medications: Current Medications Acetaminophen (Tylenol 650 Mg Supp) 650 mg [place] Q6 PRN PRN Reason: Fever >100.4 F Hydromorphone HCl (Dilaudid) 1 mg IVP Q4 PRN PRN Reason: Pain, moderate (4-7) Last Admin: 05/10/17 05:13 Dose: 1 mg Piperacillin Sod/Tazobactam (Sod 3.375 gm/ Sodium Chloride) 100 mls @ 100 mls/ hr IVPB Q6 [facility] Last Admin: 05/10/17 03:29 Dose: 100 mls/hr Metronidazole (Flagyl 500mg/100ml Ns) 100 mls @ 100 mls/hr IVPB Q8 [facility] Last Admin: 05/10/17 00:18 Dose: 100 mls/hr Vancomycin HCl 1 gm/ Sodium (Chloride) 250 mls @ 166.667 mls/hr IVPB Q12@0430, 1630 [facility] Last Admin: 05/10/17 05:06 Dose: 166.667 mls/hr Ondansetron HCl (Zofran Inj) 4 mg IVP Q6 PRN PRN Reason: Nausea/Vomiting Last Admin: 05/10/17 05:13 Dose: 4 mg Pantoprazole Sodium (Protonix Inj) 40 mg IVP DAILY [facility] Last Admin: 05/09/17 10:23 Dose: 40 mg - Labs Labs: 05/10/17 05:45 05/10/17 05:45 - Constitutional Appears: No Acute Distress - Head Exam Head Exam: ATRAUMATIC, NORMAL INSPECTION, NORMOCEPHALIC - Eye Exam Eye Exam: Normal appearance - Respiratory Exam Respiratory Exam: NORMAL BREATHING PATTERN. absent: Respiratory Distress - GI/Abdominal Exam GI & Abdominal Exam: Firm, Soft, Tenderness (TTP in epigastric/RUQ over palpable cyst), Mass. absent: Distended, Guarding, Rigid, Rebound - Neurological Exam Neurological Exam: Alert, Oriented x3 - Psychiatric Exam Psychiatric exam: Normal Affect, Normal Mood - Skin Skin Exam: Dry, Intact Assessment and Plan - Assessment and Plan (Free Text) Assessment: 41F w/ abd pain 2/2 cholelithiasis vs. hepatic cyst -F/U MRI -F/U Echinococcus Ab -Continue IVF, IV Abx -F/U AM Labs -Will DW Hepatobiliary surgery LAMBERT Zamorano PGY3 <Charles Reich - Last Filed: 05/16/17 18:52> Objective - Vital Signs/Intake and Output Vital Signs (last 24 hours): Temp Pulse Resp BP Pulse Ox 99.0 F 68 19 138/78 97 05/13/17 13:00 05/13/17 13:00 05/13/17 13:00 05/13/17 13:00 05/13/17 13:00 - Labs Labs: 05/13/17 11:55 05/13/17 11:55 PT 13.4 Seconds (9.8-13.1) H 05/12/17 06:35 INR 1.3 (0.9-1.2) H 05/12/17 06:35 APTT 25.3 Seconds (25.6-37.1) L 05/12/17 06:35 Attending/Attestation - Attestation I have personally seen and examined this patient.: Yes I have fully participated in the care of the patient.: Yes I have reviewed all pertinent clinical information, including history, physical exam and plan: Yes Notes (Text): 05/16/17 18:51 Pt was seen and examined at bedside Agree with above note and assessment Pt with Cholecystitis with adjacent Large Liver cyst HIDA scan IR consult for cholecystostomy tube Hepatobilliary consult C/w current mx IV antibiotics Plan d.w pt in detail Risk and benefit explained in detail.
[2017-05-10] MEDS ORDERED: Meropenem 1 GM in Sodium Chloride 0.9% 100 ML IVPB SCH (09:00)
[2017-05-10] MEDS ORDERED: Sodium Chloride 0.9% 1,000 ML IV SCH (09:00)
--- NOTE | 2017-05-10 10:52 | CP.PCM.CON ---
History of Present Illness - History of Present Illness History of Present Illness: 41 yo female with no significant PMH came in complaining of persistent RUQ and epigastric pain radiating to the back since 5 days ago accompanied with fever and nausea. She was seen in the ER yesterday and was discharged with a diagnosis of cholecystitis. She was advised to follow up with Dr Reich for an elective cholecystectomy. Her condition did not improve and now came back to the ER with diaphoresis accompanied with fever, abdominal pain and nausea. imaging shows large cyst in left lobe of liver ID consulted for + blood cultures Review of Systems - Constitutional Constitutional: As Per HPI - EENT Eyes: absent: As Per HPI, Blind Spots, Blurred Vision, Change in Vision, Decreased Night Vision, Diplopia, Discharge, Dry Eye, Exophthalmos, Floaters, Irritation, Itchy Eyes, Loss of Peripheral Vision, Pain, Photophobia, Requires Corrective Lenses, Sees Flashes, Spots in Vision, Tunnel Vision, Other Visual Disturbances, Loss of Vision, Other Ears: absent: As Per HPI, Decreased Hearing, Ear Discharge, Ear Pain, Tinnitus, Abnormal Hearing, Disequilibrium, Dizziness, Other Nose/Mouth/Throat: absent: As Per HPI, Epistaxis, Nasal Congestion, Nasal Discharge, Nasal Obstruction, Nasal Trauma, Nose Pain, Post Nasal Drip, Sinus Pain, Sinus Pressure, Bleeding Gums, Change in Voice, Dental Pain, Dry Mouth, Dysphagia, Halitosis, Hoarsness, Lip Swelling, Mouth Lesions, Mouth Pain, Odynophagia, Sore Throat, Throat Swelling, Tongue Swelling, Facial Pain, Neck Pain, Neck Mass, Other - Breasts Breasts: absent: As Per HPI, Change in Shape, Mass, Pain, Nipple Discharge, Nipple Inversion, Skin Changes, Swelling, Other - Cardiovascular Cardiovascular: absent: As Per HPI, Acrocyanosis, Chest Pain, Chest Pain at Rest , Chest Pain with Activity, Claudication, Diaphoresis, Dyspnea, Dyspnea on Exertion, Edema, Irregular Heart Rhythm, Pain Radiating to Arm/Neck/Jaw, Leg Edema, Leg Ulcers, Lightheadedness, Orthopnea, Palpitations, Paroxysmal Nocturnal Dyspnea, Pedal Edema, Radiating Pain, Rapid Heart Rate, Slow Heart Rate, Syncope, Other - Respiratory Respiratory: absent: As Per HPI, Cough, Dyspnea, Hemoptysis, Dyspnea on Exertion , Wheezing, Snoring, Stridor, Pain on Inspiration, Chest Congestion, Excessive Mucous Production, Change in Mucous Color, Pain with Coughing, Other - Gastrointestinal Gastrointestinal: As Per HPI - Genitourinary Genitourinary: As Per HPI - Reproductive: Female Reproductive:Female: absent: As Per HPI, Amenorrhea, Amenorrhea/ Control, Currently Menstual, Cycle <21 Days, Cycle >35 Days, Cycle Variable, Menses 1-7 Days, Menses >/= 8 Days, Menses Variable, Cycle > 4 Weeks Between, No Menses for 6 Months, Heavy Menses, Light Menses, Normal Menses, Spotting Between Cycles , S/P Hysterectomy, Menopausal, Post Menopausal, Premenarche, Abnormal Vaginal Bleeding, Dysmenorrhea, Dyspareunia, Genital Lesions, Genital Pruritis, Pelvic Pain, Prolapse Symptoms, Sexual Dysfunction, Vaginal Discharge, Vaginal Dryness , Vaginal Odor, Vaginal Pruritis, Other - Menstruation Menstruation: absent: As Per HPI, Amenorrhea, Amenorrhea/ Control, Currently Menstual, Cycle <21 Days, Cycle >35 Days, Cycle Variable, Menses 1-7 Days, Menses >/= 8 Days, Menses Variable, Cycle > 4 Weeks Between, No Menses for 6 Months, Heavy Menses, Light Menses, Normal Menses, Spotting Between Cycles , S/P Hysterectomy, Menopausal, Post Menopausal, Premenarche, Abnormal Vaginal Bleeding, Dysmenorrhea, Other - Musculoskeletal Musculoskeletal: absent: As Per HPI, Abnormal Gait, Arthralgias, Atrophy, Back Pain, Deformity, Joint Swelling, Limited Range of Motion, Loss of Height, Muscle Cramps, Muscle Weakness, Myalgias, Neck Pain, Numbness, Radiating Pain into Limb, Stiffness, Tingling, Other - Integumentary Integumentary: absent: As Per HPI, Acne, Alopecia, Bleeding Lesions, Change in Hair, Change in Nails, Change in Pigmentation, Changing Lesions, Dry Skin, Erythema, Furuncle, Hirsutism, Lesions, New Lesions, Non-Healing Lesions, Photosensitivity, Pruritus, Rash, Skin Pain, Skin Ulcer, Sores, Striae, Swelling , Unusual Bruising, Wounds, Jaundice, Other - Neurological Neurological: absent: As Per HPI, Abnormal Gait, Abnormal Hearing, Abnormal Movements, Abnormal Speech, Behavioral Changes, Burning Sensations, Confusion, Convulsions, Disequilibrium, Dizziness, Numbness, Focal Weakness, Frequent Falls , Headaches, Lack of Coordination, Loss of Vision, Memory Loss, Paresthesias, Radicular Pain, Restless Legs, Sensory Deficit, Syncope, Tingling, Tremor, Vertigo, Weakness, Other Visual Disturbances, Other - Psychiatric Psychiatric: absent: As Per HPI, Abnormal Sleep Pattern, Anhedonia, Anxiety, Auditory Hallucinations, Behavioral Changes, Change in Appetite, Change in Libido, Confusion, Depression, Difficulty Concentrating, Hallucinations, Homicidal Ideation, Hopelessness, Irritability, Memory Loss, Mood Swings, Panic Attacks, Paranoia, Suicidal Ideation, Visual Hallucinations, Tactile Hallucinations, Other - Endocrine Endocrine: absent: As Per HPI, Change in Body Appearance, Change in Libido, Cold Intolorance, Deepening of Voice, Excessive Sweating, Fatigue, Flushing, Heat Intolorance, Increase in Ring/Shoe/Hat Size, Palpitations, Polydipsia, Polyphagia, Polyuria, Other - Hematologic/Lymphatic Hematologic: absent: As Per HPI, Easy Bleeding, Easy Bruising, Lymphadenopathy, Other Past Patient History - Tetanus Immunizations Tetanus Immunization: Unknown - Past Medical History & Family History Past Medical History?: No - Past Social History Smoking Status: Never Smoked - CARDIAC Hx Cardiac Disorders: No - PULMONARY Hx Respiratory Disorders: No - NEUROLOGICAL Hx Neurological Disorder: No - HEENT Hx HEENT Problems: No - RENAL Hx Chronic Kidney Disease: No - ENDOCRINE/METABOLIC Hx Endocrine Disorders: No - HEMATOLOGICAL/ONCOLOGICAL Hx Blood Disorders: No - INTEGUMENTARY Hx Dermatological Problems: No - MUSCULOSKELETAL/RHEUMATOLOGICAL Hx Musculoskeletal Disorders: No Hx Falls: No - GASTROINTESTINAL Hx Gastrointestinal Disorders: No Other/Comment: cholelithiasis - GENITOURINARY/GYNECOLOGICAL Hx Genitourinary Disorders: No - PSYCHIATRIC Hx Psychophysiologic Disorder: No Hx Substance Use: No - SURGICAL HISTORY Hx Surgeries: No - ANESTHESIA Hx Anesthesia: No Meds Allergies/Adverse Reactions: Allergies Allergy/AdvReac Type Severity Reaction Status Date / Time No Known Allergies Allergy Verified 05/08/17 07:19 - Medications Medications: Current Medications Acetaminophen (Tylenol 650 Mg Supp) 650 mg [place] Q6 PRN PRN Reason: Fever >100.4 F Last Admin: 05/10/17 09:11 Dose: 650 mg Hydromorphone HCl (Dilaudid) 1 mg IVP Q4 PRN PRN Reason: Pain, moderate (4-7) Last Admin: 05/10/17 09:22 Dose: 1 mg Piperacillin Sod/Tazobactam (Sod 3.375 gm/ Sodium Chloride) 100 mls @ 100 mls/ hr IVPB Q6 [facility] Last Admin: 05/10/17 03:29 Dose: 100 mls/hr Metronidazole (Flagyl 500mg/100ml Ns) 100 mls @ 100 mls/hr IVPB Q8 [facility] Last Admin: 05/10/17 09:06 Dose: 100 mls/hr Vancomycin HCl 1 gm/ Sodium (Chloride) 250 mls @ 166.667 mls/hr IVPB Q12@0430, 1630 [facility] Last Admin: 05/10/17 05:06 Dose: 166.667 mls/hr Meropenem 1 gm/ Sodium (Chloride) 100 mls @ 100 mls/hr IVPB Q8 [facility] Stop: 05/11/17 01:59 Sodium Chloride (Sodium Chloride 0.9%) 1,000 mls @ 999 mls/hr IV .Q1H1M [facility] Stop: 05/11/17 08:49 Last Admin: 05/10/17 09:10 Dose: 999 mls/hr Sodium Chloride (Sodium Chloride 0.9%) 1,000 mls @ 150 mls/hr IV .Q6H40M [facility] Stop: 05/11/17 08:50 Ondansetron HCl (Zofran Inj) 4 mg IVP Q6 PRN PRN Reason: Nausea/Vomiting Last Admin: 05/10/17 05:13 Dose: 4 mg Pantoprazole Sodium (Protonix Inj) 40 mg IVP DAILY [facility] Last Admin: 05/10/17 09:10 Dose: 40 mg Physical Exam - Constitutional Appears: Non-toxic, Chronically Ill - Head Exam Head Exam: ATRAUMATIC, NORMAL INSPECTION, NORMOCEPHALIC - Eye Exam Eye Exam: PERRL. absent: Scleral icterus - ENT Exam ENT Exam: Mucous Membranes Dry, Normal External Ear Exam, Normal Oropharynx - Neck Exam Neck exam: Negative for: Lymphadenopathy - Respiratory Exam Respiratory Exam: Decreased Breath Sounds, Clear to Auscultation Bilateral - Cardiovascular Exam Cardiovascular Exam: REGULAR RHYTHM, +S1, +S2 - GI/Abdominal Exam GI & Abdominal Exam: Diminished Bowel Sounds, Soft. absent: Tenderness - Rectal Exam Rectal Exam: Deferred - Exam Exam: NORMAL INSPECTION - Extremities Exam Extremities exam: Positive for: pedal pulses present. Negative for: calf tenderness, pedal edema, tenderness - Back Exam Back exam: absent: CVA tenderness (L), CVA tenderness (R) - Neurological Exam Neurological exam: Alert, CN II-XII Intact, Oriented x3, Reflexes Normal - Psychiatric Exam Psychiatric exam: Normal Mood - Skin Skin Exam: Dry, Intact Results - Vital Signs Recent Vital Signs: Last Vital Signs Temp 102.1 F H 05/10/17 08:00 Pulse 114 H 05/10/17 08:00 Resp 18 05/10/17 08:00 BP 125/78 05/10/17 08:00 Pulse Ox 93 L 05/10/17 08:00 - Labs Result Diagrams: 05/10/17 05:45 05/10/17 05:45 Labs: Laboratory Results - last 24 hr 05/09/17 05/09/17 05/10/17 05:30 11:05 05:45 WBC RBC Hgb Hct MCV MCH MCHC RDW Plt Count MPV Neut % (Auto) Lymph % (Auto) [place] % (Auto) Eos % (Auto) Baso % (Auto) Neut # Lymph # [place] # Eos # Baso # Neutrophils % (Manual) 85 H Band Neutrophils % 2 Lymphocytes % (Manual) 10 L Monocytes % (Manual) 3 Platelet Estimate Normal Anisocytosis (manual) Slight Sodium 139 142 Potassium 4.0 4.2 Chloride 102 105 Carbon Dioxide 27 28 Anion Gap 14 14 BUN 10 12 Creatinine 0.5 L 0.5 L Est GFR ( Amer) > 60 > 60 Est GFR (Non-Af Amer) > 60 > 60 Random Glucose 138 H 120 H Calcium 8.7 8.9 Total Bilirubin 1.8 H 1.5 H AST 77 H D 44 H D ALT 71 H D 61 H Alkaline Phosphatase 170 H 205 H D Total Protein 7.6 7.8 Albumin 3.7 3.7 Globulin 3.9 4.0 H Albumin/Globulin Ratio 0.9 L 0.9 L 05/10/17 05:45 WBC 3.4 L D RBC 3.77 L Hgb 11.4 L Hct 34.5 MCV 91.7 MCH 30.1 MCHC 32.9 L RDW 14.0 Plt Count 261 MPV 7.7 Neut % (Auto) 75.7 H Lymph % (Auto) 22.2 [place] % (Auto) 0.8 Eos % (Auto) 0.9 Baso % (Auto) 0.4 Neut # 2.6 Lymph # 0.8 L [place] # 0.0 Eos # 0.0 Baso # 0.0 Neutrophils % (Manual) Band Neutrophils % Lymphocytes % (Manual) Monocytes % (Manual) Platelet Estimate Anisocytosis (manual) Sodium Potassium Chloride Carbon Dioxide Anion Gap BUN Creatinine Est GFR ( Amer) Est GFR (Non-Af Amer) Random Glucose Calcium Total Bilirubin AST ALT Alkaline Phosphatase Total Protein Albumin Globulin Albumin/Globulin Ratio Assessment & Plan (1) Cholelithiasis Status: Acute (2) Hepatic cyst Status: Acute (3) Sepsis Status: Acute - Assessment and Plan (Free Text) Assessment: gram positive bacteremia sepsis cholelithiasis hepatic cyst vs abscess cont IV antibiotics check MRI surgical follow up echinococcus titer, stool O /P
--- NOTE | 2017-05-10 12:21 | CP.PCM.PN ---
Subjective - Date & Time of Evaluation Date of Evaluation: 05/10/17 Time of Evaluation: 12:19 - Subjective Subjective: continues to have fevers overnight CT chest and pelvis today to eval for pnumonia and hip abscess no complaints feeling improved hd stable nad Objective - Vital Signs/Intake and Output Vital Signs (last 24 hours): Temp Pulse Resp BP Pulse Ox 102.1 F H 114 H 18 125/78 93 L 05/10/17 08:00 05/10/17 08:00 05/10/17 08:00 05/10/17 08:00 05/10/17 08:00 GEN: WDWN, alert, cooperative HEENT: NCAT, PERRL, EOMI NECK: supple, no JVD, no lymphadenopathy CARDIAC: +S1S2 RRR LUNG: CTAB No WRR ABD: SOFT NT ND BSX4 NO MASSES NO HSM EXT: +pedal pulses, equal strength NEURO: AAOx3 SKIN warm, dry PSYCH normal mood, normal affect - Medications Medications: Current Medications Acetaminophen (Tylenol 650 Mg Supp) 650 mg [place] Q6 PRN PRN Reason: Fever >100.4 F Last Admin: 05/10/17 09:11 Dose: 650 mg Hydromorphone HCl (Dilaudid) 1 mg IVP Q4 PRN PRN Reason: Pain, moderate (4-7) Last Admin: 05/10/17 09:22 Dose: 1 mg Vancomycin HCl 1 gm/ Sodium (Chloride) 250 mls @ 166.667 mls/hr IVPB Q12@0430, 1630 [facility] Last Admin: 05/10/17 05:06 Dose: 166.667 mls/hr Sodium Chloride (Sodium Chloride 0.9%) 1,000 mls @ 999 mls/hr IV .Q1H1M [facility] Stop: 05/11/17 08:49 Last Admin: 05/10/17 09:10 Dose: 999 mls/hr Sodium Chloride (Sodium Chloride 0.9%) 1,000 mls @ 150 mls/hr IV .Q6H40M [facility] Stop: 05/11/17 08:50 Meropenem 1 gm/ Sodium (Chloride) 100 mls @ 100 mls/hr IVPB Q8 [facility] Stop: 05/15/17 09:59 Ondansetron HCl (Zofran Inj) 4 mg IVP Q6 PRN PRN Reason: Nausea/Vomiting Last Admin: 05/10/17 05:13 Dose: 4 mg Pantoprazole Sodium (Protonix Inj) 40 mg IVP DAILY [facility] Last Admin: 05/10/17 09:10 Dose: 40 mg - Labs Labs: 05/10/17 05:45 05/10/17 05:45 Assessment and Plan - Assessment and Plan (Free Text) Plan: 41 yo female with no significant PMH came in complaining of persistent RUQ and epigastric pain radiating to the back since 5 days ago accompanied with fever and nausea. She was seen in the ER yesterday and was discharged with a diagnosis of cholecystitis. She was advised to follow up with Dr Reich for an elective cholecystectomy. Her condition did not improved and now came back to the ER with diaphoresis accompanied with fever, abdominal pain and nausea. CT ABDPEL: L slightly elliptical shaped unilocular cyst left lobe liver, unchanged from prior study. Cholelithiasis. Sepsis 2/2 cholecystitis febrile today, mild pain midepigastric radiating to shoulder however WBC trending down, LFTs trending down TBILI elevated , normal yesterday FOR HIDA, IF POS, CHOLECYSTOSTOMY TUBE BY IR blood culture x 2. No growth urine cx <45132 gm+cocci START MERREM added Vancomycin today for worsening WBC, LFTs for coverage. ID CONSULT: change to MERREM DISCONTINUED Zosyn 3.375gm IV q 6hrs. DISCONTINUED Flagyn 500 mg q8H. Morphine 2mg IV q 4hrs prn for pain. zofran 4mg IV q 4hrs prn for nausea. surgical consult with Dr Reich Liver Cyst Hepatobiliary Surgical Consult with Dr. Apple MRI Abd/Liver w contrast for cyst, per surgery concern for echinococcal cyst vs. hemangioma DVT prophylaxis Status: Acute Comment: venodyne boots while on bed
[2017-05-10 13:03] LABS: PARTIAL THROMBOPLASTIN TIME 26.2 Seconds (25.6-37.1)
--- NOTE | 2017-05-10 17:48 | NM ---
PROCEDURE: Nuclear Medicine Hepatobiliary Scan HISTORY: r/o cholecystitis COMPARISON: Comparison is made to the previous CT dated 05/08/2017 TECHNIQUE: 5.6 mCi of technetium 99m Mebrofenin was administered intravenously. Planar images of the abdomen were obtained at 5 min intervals to 60 mins. Delayed images were also obtained. Delayed 4 hours images were also obtained. FINDINGS: LIVER: There is large photopenic area seen at the central portion of the liver corresponding to the large unilocular cyst seen in the previous CT. The liver is mildly enlarged. COMMON BILE DUCT: identified at 10 minutes mins. GALLBLADDER: Not identified up to 4 hours after the tracer injection. SMALL BOWEL: Identified at 10 minutes mins. IMPRESSION: The gallbladder not identified up to 4 hours. The possibility of cystic duct occlusion/cholecystitis should be considered. Large photopenic area seen in the liver corresponding to the cystic lesion seen in the previous CT. No evidence of common bile duct obstruction.
[2017-05-10] MEDS: Meropenem 1 GM in Sodium Chloride 0.9% 100 ML IVPB SCH (18:16)
[2017-05-10] MEDS: Sodium Chloride 0.9% 1,000 ML IV SCH (23:30)
[2017-05-11] MEDS: Meropenem 1 GM in Sodium Chloride 0.9% 100 ML IVPB SCH ×3 (00:11→16:56)
[2017-05-11] MEDS: Sodium Chloride 0.9% 1,000 ML IV SCH ×4 (06:00→16:17)
[2017-05-11 07:44] LABS: BASO % 0.4 % (0.0-2.0); EOS % 0.4 % (0.0-4.0); HEMATOCRIT 30.1 % (34.0-47.0); LYMPH # 1.7 K/uL (1.0-4.3); LYMPH % 13.8 % (20.0-40.0); MEAN CELL VOLUME 90.7 fl (81.0-99.0); MEAN CORPUSCULAR HEMOGLOBIN 30.1 pg (27.0-31.0); MEAN CORPUSCULAR HGB CONC 33.2 g/dL (33.0-37.0); MEAN PLATELET VOLUME 7.3 fl (7.2-11.7); MONO # 0.7 K/uL (0.0-0.8); MONO % 5.8 % (0.0-10.0); NEUT # 9.7 K/uL (1.8-7.0); NEUT % 79.6 % (50.0-75.0); WHITE BLOOD COUNT 12.2 K/uL (4.8-10.8)
--- NOTE | 2017-05-11 07:48 | CP.PCM.PN ---
<JaunNancy - Last Filed: 05/11/17 07:45> Subjective - Date & Time of Evaluation Date of Evaluation: 05/11/17 Time of Evaluation: 07:45 - Subjective Subjective: General Surgery - Dr. Reich Pt S&E. SONJA. Pt had + HIDA scan yesterday. She still has RUQ abdominal pain , relatively unchanged. Afebrile overnight. She has been OOB and ambulating. No N/V, F/C, SOB/CP. Objective - Vital Signs/Intake and Output Vital Signs (last 24 hours): Temp Pulse Resp BP Pulse Ox 99 F 91 H 20 120/72 95 05/11/17 04:41 05/11/17 04:41 05/11/17 04:41 05/11/17 04:41 05/11/17 04:41 Intake and Output: 05/11/17 05/11/17 06:59 18:59 Intake Total 2150 Output Total 1500 Balance 650 - Medications Medications: Current Medications Acetaminophen (Tylenol 650 Mg Supp) 650 mg ID Q6 PRN PRN Reason: Fever >100.4 F Last Admin: 05/10/17 09:11 Dose: 650 mg Hydromorphone HCl (Dilaudid) 1 mg IVP Q4 PRN PRN Reason: Pain, moderate (4-7) Last Admin: 05/11/17 00:24 Dose: 1 mg Sodium Chloride (Sodium Chloride 0.9%) 1,000 mls @ 999 mls/hr IV .Q1H1M [facility] Stop: 05/11/17 08:49 Last Admin: 05/10/17 09:10 Dose: 999 mls/hr Sodium Chloride (Sodium Chloride 0.9%) 1,000 mls @ 150 mls/hr IV .Q6H40M [facility] Stop: 05/11/17 08:50 Last Admin: 05/11/17 06:00 Dose: 150 mls/hr Meropenem 1 gm/ Sodium (Chloride) 100 mls @ 100 mls/hr IVPB Q8 [facility] Stop: 05/15/17 09:59 Last Admin: 05/11/17 00:11 Dose: 100 mls/hr Vancomycin HCl 1 gm/ Sodium (Chloride) 250 mls @ 166.667 mls/hr IVPB Q12@0830, 2030 [facility] Last Admin: 05/10/17 19:55 Dose: 166.667 mls/hr Ondansetron HCl (Zofran Inj) 4 mg IVP Q6 PRN PRN Reason: Nausea/Vomiting Last Admin: 05/10/17 05:13 Dose: 4 mg Pantoprazole Sodium (Protonix Inj) 40 mg IVP DAILY [facility] Last Admin: 05/10/17 09:10 Dose: 40 mg - Labs Labs: 05/10/17 05:45 05/10/17 05:45 PT 13.3 Seconds (9.8-13.1) H 05/10/17 12:20 INR 1.3 (0.9-1.2) H 05/10/17 12:20 APTT 26.2 Seconds (25.6-37.1) 05/10/17 12:20 - Constitutional Appears: No Acute Distress - Head Exam Head Exam: ATRAUMATIC, NORMAL INSPECTION, NORMOCEPHALIC - Eye Exam Eye Exam: Normal appearance - ENT Exam ENT Exam: Mucous Membranes Moist - Respiratory Exam Respiratory Exam: NORMAL BREATHING PATTERN. absent: Respiratory Distress - GI/Abdominal Exam GI & Abdominal Exam: Firm, Guarding (ruq), Soft, Tenderness (RUQ). absent: Distended, Rigid - Neurological Exam Neurological Exam: Alert, Oriented x3 - Psychiatric Exam Psychiatric exam: Normal Affect, Normal Mood - Skin Skin Exam: Dry, Intact Assessment and Plan - Assessment and Plan (Free Text) Assessment: 41F w/ acute cholecystitis and hepatic cyst -+HIDA scan yesterday, consult placed to IR for Cholecystostomy tube -After drainage pt. to f/u in office with hepatobiliary surgeon, Dr. Apple, for eventual cholecystectomy -F/U MRI to further evaluate liver cyst -F/U Echinococcus Ab -Continue IVF, IV Abx DW DR Rachana Zamorano PGY3 <Charles Reich - Last Filed: 05/16/17 18:58> Objective - Vital Signs/Intake and Output Vital Signs (last 24 hours): Temp Pulse Resp BP Pulse Ox 99.0 F 68 19 138/78 97 05/13/17 13:00 05/13/17 13:00 05/13/17 13:00 05/13/17 13:00 05/13/17 13:00 - Labs Labs: 05/13/17 11:55 05/13/17 11:55 PT 13.4 Seconds (9.8-13.1) H 05/12/17 06:35 INR 1.3 (0.9-1.2) H 05/12/17 06:35 APTT 25.3 Seconds (25.6-37.1) L 05/12/17 06:35 Attending/Attestation - Attestation I have personally seen and examined this patient.: Yes I have fully participated in the care of the patient.: Yes I have reviewed all pertinent clinical information, including history, physical exam and plan: Yes Notes (Text): 05/16/17 18:57 Pt was seen and examined at bedside Agree with above note and assessment Pt with Cholecystitis with adjacent Large Liver cyst Cholecystostomy tube IV antibiotics Plan d.w pt in detail Risk and benefit explained in detail.
[2017-05-11 08:04] LABS: ALB/GLOB RATIO 0.9 (1.0-2.1); ALKALINE PHOSPHATASE 198 U/L (38-126); ALT/SGPT 62 U/L (9-52); AST/SGOT 54 U/L (14-36); BILIRUBIN,TOTAL 0.7 mg/dl (0.2-1.3); BLOOD UREA NITROGEN 14 mg/dl (7-17); CALCIUM 8.4 mg/dL (8.4-10.2); CARBON DIOXIDE 26 mmol/L (22-30); CHLORIDE 108 mmol/L (98-107); GFR AFRICAN-AMERICAN > 60; GLUCOSE,RANDOM 113 mg/dL (65-105); POTASSIUM 3.8 MMOL/L (3.6-5.0); SODIUM 143 mmol/l (132-148); TOTAL PROTEIN 6.7 G/DL (6.3-8.2)
[2017-05-11] MEDS ORDERED: Sodium Chloride 0.9% 50 ML IV ONE (09:56)
[2017-05-11] MEDS ORDERED: Gadodiamide 287 MG/ML VIAL (15ML) IV ONE (09:56)
--- NOTE | 2017-05-11 10:40 | CP.PCM.PN ---
Subjective - Date & Time of Evaluation Date of Evaluation: 05/11/17 Time of Evaluation: 10:33 - Subjective Subjective: patient feels weak this am WBC elevated 12.2 again for Cholecystostomy tube by IR and PICC HD STABLE NAD Objective - Vital Signs/Intake and Output Vital Signs (last 24 hours): Temp Pulse Resp BP Pulse Ox 99.1 F 87 18 118/75 97 05/11/17 08:04 05/11/17 08:04 05/11/17 08:04 05/11/17 08:04 05/11/17 08:04 Exam: GEN: WDWN, alert, cooperative HEENT: NCAT, PERRL, EOMI NECK: supple, no JVD, no lymphadenopathy CARDIAC: +S1S2 RRR LUNG: CTAB No WRR ABD: SOFT NT ND BSX4 NO MASSES NO HSM EXT: +pedal pulses, equal strength NEURO: AAOx3 SKIN warm, dry PSYCH normal mood, normal affect Intake and Output: 05/11/17 05/11/17 06:59 18:59 Intake Total 2150 Output Total 1500 Balance 650 - Medications Medications: Current Medications Acetaminophen (Tylenol 650 Mg Supp) 650 mg [place] Q6 PRN PRN Reason: Fever >100.4 F Last Admin: 05/10/17 09:11 Dose: 650 mg Hydromorphone HCl (Dilaudid) 1 mg IVP Q4 PRN PRN Reason: Pain, moderate (4-7) Last Admin: 05/11/17 08:30 Dose: 1 mg Sodium Chloride (Sodium Chloride 0.9%) 1,000 mls @ 150 mls/hr IV .Q6H40M [facility] Last Admin: 05/11/17 06:00 Dose: 150 mls/hr Meropenem 1 gm/ Sodium (Chloride) 100 mls @ 100 mls/hr IVPB Q8 [facility] Stop: 05/15/17 09:59 Last Admin: 05/11/17 00:11 Dose: 100 mls/hr Vancomycin HCl 1 gm/ Sodium (Chloride) 250 mls @ 166.667 mls/hr IVPB Q12@0830, 2030 [facility] Last Admin: 05/11/17 08:30 Dose: 166.667 mls/hr Ondansetron HCl (Zofran Inj) 4 mg IVP Q6 PRN PRN Reason: Nausea/Vomiting Last Admin: 05/10/17 05:13 Dose: 4 mg Pantoprazole Sodium (Protonix Inj) 40 mg IVP DAILY [facility] Last Admin: 05/11/17 08:40 Dose: 40 mg - Labs Labs: 05/11/17 07:40 05/11/17 07:40 PT 13.3 Seconds (9.8-13.1) H 05/10/17 12:20 INR 1.3 (0.9-1.2) H 05/10/17 12:20 APTT 26.2 Seconds (25.6-37.1) 05/10/17 12:20 Assessment and Plan - Assessment and Plan (Free Text) Plan: 41 yo female with no significant PMH came in complaining of persistent RUQ and epigastric pain radiating to the back since 5 days ago accompanied with fever and nausea. She was seen in the ER yesterday and was discharged with a diagnosis of cholecystitis. She was advised to follow up with Dr Reich for an elective cholecystectomy. Her condition did not improved and now came back to the ER with diaphoresis accompanied with fever, abdominal pain and nausea. CT ABDPEL: L slightly elliptical shaped unilocular cyst left lobe liver, unchanged from prior study. Cholelithiasis. 05/10/19 HIDA+ CHOLECYSTOSTOMY TUBE BY IR 05/08/17 blood culture enterobacter aerogenes (S: Aztreonam 1, Ceftriaxone 1, TMPSMX 20, CIPRO 0.25, CEFEPIME 1, GENTA 1) 05/08/17 blood culture coag neg staph (S: CLINDA 0.25, CIPRO 0.5, ERYTH 0.25, GENTA 0.5, LEVO 0.12, MOXI 0.25, OXA 0.25, PCN 0.03, RIFAMPIN 0.5, VANCO 0.5) 05/08/17 urine cx <76337 gm+cocci Sepsis 2/2 cholecystitis afebrile today, mild pain midepigastric radiating to shoulder WBC ELEVATED, LFTs elevated TBILI normal today MRI MRCP TODAY 05/10/19 HIDA+ CHOLECYSTOSTOMY TUBE BY IR Hep panel neg Per ID, Ova Para and Entamoeba Pending 05/08/17 blood culture enterobacter aerogenes (S: Aztreonam 1, Ceftriaxone 1, TMPSMX 20, CIPRO 0.25, CEFEPIME 1, GENTA 1) 05/08/17 blood culture coag neg staph (S: CLINDA 0.25, CIPRO 0.5, ERYTH 0.25, GENTA 0.5, LEVO 0.12, MOXI 0.25, OXA 0.25, PCN 0.03, RIFAMPIN 0.5, VANCO 0.5) 05/08/17 urine cx <21628 gm+cocci START MERREM added Vancomycin today for worsening WBC, LFTs for coverage. ID CONSULT: change to MERREM DISCONTINUED Zosyn 3.375gm IV q 6hrs. DISCONTINUED Flagyn 500 mg q8H. Morphine 2mg IV q 4hrs prn for pain. zofran 4mg IV q 4hrs prn for nausea. surgical consult with Dr Reich PICC PER IR Liver Cyst Hepatobiliary Surgical Consult with Dr. Apple MRI Abd/Liver w contrast for cyst, per surgery concern for echinococcal cyst vs. hemangioma HIDA+ IR for cholecystostomy tube PICC placed DVT prophylaxis Status: Acute Comment: venodyne boots while on bed
--- NOTE | 2017-05-11 12:04 | CP.PCM.PN ---
Subjective - Date & Time of Evaluation Date of Evaluation: 05/11/17 Time of Evaluation: 06:00 - Subjective Subjective: cultures noted IV rx in progress Objective - Vital Signs/Intake and Output Vital Signs (last 24 hours): Temp Pulse Resp BP Pulse Ox 99.1 F 87 18 118/75 97 05/11/17 08:04 05/11/17 09:00 05/11/17 08:04 05/11/17 08:04 05/11/17 08:04 Intake and Output: 05/11/17 05/11/17 06:59 18:59 Intake Total 2150 Output Total 1500 Balance 650 - Medications Medications: Current Medications Acetaminophen (Tylenol 650 Mg Supp) 650 mg [place] Q6 PRN PRN Reason: Fever >100.4 F Last Admin: 05/10/17 09:11 Dose: 650 mg Hydromorphone HCl (Dilaudid) 1 mg IVP Q4 PRN PRN Reason: Pain, moderate (4-7) Last Admin: 05/11/17 08:30 Dose: 1 mg Sodium Chloride (Sodium Chloride 0.9%) 1,000 mls @ 150 mls/hr IV .Q6H40M [facility] Last Admin: 05/11/17 06:00 Dose: 150 mls/hr Meropenem 1 gm/ Sodium (Chloride) 100 mls @ 100 mls/hr IVPB Q8 [facility] Stop: 05/15/17 09:59 Last Admin: 05/11/17 00:11 Dose: 100 mls/hr Vancomycin HCl 1 gm/ Sodium (Chloride) 250 mls @ 166.667 mls/hr IVPB Q12@0830, 2030 [facility] Last Admin: 05/11/17 08:30 Dose: 166.667 mls/hr Ondansetron HCl (Zofran Inj) 4 mg IVP Q6 PRN PRN Reason: Nausea/Vomiting Last Admin: 05/10/17 05:13 Dose: 4 mg Pantoprazole Sodium (Protonix Inj) 40 mg IVP DAILY [facility] Last Admin: 05/11/17 08:40 Dose: 40 mg - Labs Labs: 05/11/17 07:40 05/11/17 07:40 PT 13.3 Seconds (9.8-13.1) H 05/10/17 12:20 INR 1.3 (0.9-1.2) H 05/10/17 12:20 APTT 26.2 Seconds (25.6-37.1) 05/10/17 12:20 Assessment and Plan (1) Cholelithiasis Status: Acute (2) Hepatic cyst Status: Acute (3) Sepsis Status: Acute
[2017-05-11] MEDS ORDERED: Midazolam 2 MG/2 ML VIAL ONE ×2 (13:08→13:33)
[2017-05-11] MEDS ORDERED: Lidocaine 1% Inj (20ml) ONE (13:11)
[2017-05-11] MEDS ORDERED: Iodixanol 320 mg/ml 50 ml Sol IV ONE (13:35)
[2017-05-11] MEDS ORDERED: Sodium Chloride 0.9% 500 ML IV ONE (13:45)
--- NOTE | 2017-05-11 13:54 | MRI ---
PROCEDURE: Magnetic Resonance Cholangiopancreatography HISTORY: COMPARISON: None available. TECHNIQUE: Multiplanar, multisequence MR images of the abdomen were obtained, including heavily T2 weighted MRCP images of the biliary system. Rotating maximum intensity projection images of the biliary system were generated. FINDINGS: MRCP: The common bile duct is minimally dilated, to 8 mm. There is no evidence of choledocholithiasis. The pancreatic duct is normal in caliber. There is normal smooth tapering of the distal common bile duct. LIVER: Hepatomegaly. The liver measures approximately 24 cm craniocaudal. There is mild diffuse fatty infiltration with loss of signal on opposed phase T1 weighted images. There is a large fluid signal mass within the left lobe of the liver measuring 13.6 x 11.8 x 13.0 cm. There are few thin internal septations. There is no nodular mural component. There is no other hepatic mass. There is no intrahepatic biliary ductal dilatation. GALLBLADDER: There are numerous gallstones. There is mild pericholecystic edema common nonspecific. There is no kathryn pericholecystic fluid. There is no mural thickening. SPLEEN: Unremarkable. PANCREAS: Unremarkable. ADRENALS: Unremarkable. KIDNEYS: Unremarkable. AORTA: No aneurysm. ASCITES: None. OTHER FINDINGS: None. IMPRESSION: Cholelithiasis. Mild pericholecystic edema, nonspecific. No mural thickening or pericholecystic fluid. Minimal dilatation of the common bile duct to 8 mm. No evidence of choledocholithiasis. Hepatomegaly. Mild diffuse fatty infiltration. 13.6 cm cystic mass in the left lobe of liver with few thin internal septations. No other significant abnormality.
[2017-05-11] MEDS ORDERED: HYDROmorphone 0.5 mg/0.5 ml ISec ONE (13:57)
[2017-05-11] MEDS ORDERED: HYDROmorphone 0.5 mg/0.5 ml ISec IVP PRN (14:02)
--- NOTE | 2017-05-11 14:28 | PCM.SURG1 ---
Surgeon's Initial Post Op Note - Surgeon's Notes Surgeon: Hari Ritchie MD Cashier General: None Type of Anesthesia: Local Pre-Operative Diagnosis: Poor venous access Operative Findings: Patent right basilic vein Post-Operative Diagnosis: Poor venous access Operation Performed: Dual lumen picc placement, 39 cm. Tip in SVC. Specimen/Specimens Removed: None Estimated Blood Loss: EBL {In ML}: 2 Blood Products Given: N/A Drains Used: No Drains Post-Op Condition: Fair Date of Surgery/Procedure: 05/11/17 Time of Surgery/Procedure: 14:00
--- NOTE | 2017-05-11 14:32 | PCM.SURG1 ---
Surgeon's Initial Post Op Note - Surgeon's Notes Surgeon: Hari Ritchie MD Cooperative Manager: NONE Type of Anesthesia: IV Sedation Pre-Operative Diagnosis: Cholecystitis Operative Findings: US showed a GB with gallstones. Post-Operative Diagnosis: Cholecystitis Operation Performed: Cholecystostomy tube placement Specimen/Specimens Removed: None Estimated Blood Loss: EBL {In ML}: 2 Blood Products Given: N/A Drains Used: No Drains Post-Op Condition: Fair Date of Surgery/Procedure: 05/11/17 Time of Surgery/Procedure: 14:00
[2017-05-11] MEDS ORDERED: Sodium Chloride 0.9% 1,000 ML IV ONE (15:44)
[2017-05-12] MEDS: Meropenem 1 GM in Sodium Chloride 0.9% 100 ML IVPB SCH ×3 (01:26→16:34)
[2017-05-12] MEDS: Sodium Chloride 0.9% 1,000 ML IV SCH ×4 (06:37→21:14)
--- NOTE | 2017-05-12 07:29 | CP.PCM.PN ---
<Sukhjinder Francis - Last Filed: 05/12/17 07:27> Subjective - Date & Time of Evaluation Date of Evaluation: 05/12/17 Time of Evaluation: 07:27 - Subjective Subjective: Surgery Pt s&e. Pt underwent PICC and Cholecytostomy tube insertion yesterday and tolerated it well. Denies F/C/N/V/D/CP/SOB. Abd Pain improved. c/o L back pain. + amb. Tolerlating diet. Objective - Vital Signs/Intake and Output Vital Signs (last 24 hours): Temp Pulse Resp BP Pulse Ox 98.4 F 95 H 18 125/80 98 05/12/17 03:25 05/12/17 03:25 05/12/17 03:25 05/12/17 03:25 05/12/17 03:25 - Medications Medications: Current Medications Acetaminophen (Tylenol 650 Mg Supp) 650 mg [place] Q6 PRN PRN Reason: Fever >100.4 F Last Admin: 05/10/17 09:11 Dose: 650 mg Hydromorphone HCl (Dilaudid) 1 mg IVP Q4 PRN PRN Reason: Pain, moderate (4-7) Last Admin: 05/12/17 00:06 Dose: 1 mg Sodium Chloride (Sodium Chloride 0.9%) 1,000 mls @ 150 mls/hr IV .Q6H40M [facility] Last Admin: 05/11/17 16:17 Dose: Not Given Meropenem 1 gm/ Sodium (Chloride) 100 mls @ 100 mls/hr IVPB Q8 [facility] Stop: 05/15/17 09:59 Last Admin: 05/12/17 01:26 Dose: 100 mls/hr Vancomycin HCl 1 gm/ Sodium (Chloride) 250 mls @ 166.667 mls/hr IVPB Q12@0830, 2030 [facility] Last Admin: 05/11/17 21:06 Dose: 166.667 mls/hr Sodium Chloride (Sodium Chloride 0.9%) 1,000 mls @ 100 mls/hr IV .Q10H [facility] Last Admin: 05/12/17 06:37 Dose: 100 mls/hr Ondansetron HCl (Zofran Inj) 4 mg IVP Q6 PRN PRN Reason: Nausea/Vomiting Last Admin: 05/12/17 02:33 Dose: 4 mg Pantoprazole Sodium (Protonix Inj) 40 mg IVP DAILY [facility] Last Admin: 05/11/17 08:40 Dose: 40 mg - Labs Labs: 05/11/17 07:40 05/11/17 07:40 PT 13.3 Seconds (9.8-13.1) H 05/10/17 12:20 INR 1.3 (0.9-1.2) H 05/10/17 12:20 APTT 26.2 Seconds (25.6-37.1) 05/10/17 12:20 - Constitutional Appears: No Acute Distress - Head Exam Head Exam: ATRAUMATIC, NORMAL INSPECTION, NORMOCEPHALIC - Eye Exam Eye Exam: EOMI, Normal appearance, PERRL Pupil Exam: NORMAL ACCOMODATION, PERRL - ENT Exam ENT Exam: Mucous Membranes Moist, Normal Exam - Neck Exam Neck Exam: Full ROM, Normal Inspection. absent: Lymphadenopathy - Respiratory Exam Respiratory Exam: Clear to Ausculation Bilateral, NORMAL BREATHING PATTERN - Cardiovascular Exam Cardiovascular Exam: REGULAR RHYTHM, +S1, +S2. absent: Murmur - GI/Abdominal Exam GI & Abdominal Exam: Soft, Normal Bowel Sounds. absent: Distended, Firm, Guarding, Rigid, Tenderness Additional comments: cholecystostomy tube in place. Scant output - Extremities Exam Extremities Exam: Full ROM, Normal Capillary Refill, Normal Inspection. absent : Joint Swelling, Pedal Edema Additional comments: R PICC in place. - Back Exam Back Exam: NORMAL INSPECTION, tenderness - Neurological Exam Neurological Exam: Alert, Awake, CN II-XII Intact, Normal Gait, Oriented x3 - Psychiatric Exam Psychiatric exam: Normal Affect, Normal Mood - Skin Skin Exam: Dry, Intact, Normal Color, Warm. absent: Erythema Assessment and Plan - Assessment and Plan (Free Text) Assessment: POD 1 s/p cholecystostomy tube and PICC for bacteremia and cholecystitis -F/U labs -MOnitor tube -IV ABX -Advance diet Will DW attending <Charles Reich - Last Filed: 05/16/17 19:06> Objective - Vital Signs/Intake and Output Vital Signs (last 24 hours): Temp Pulse Resp BP Pulse Ox 99.0 F 68 19 138/78 97 05/13/17 13:00 05/13/17 13:00 05/13/17 13:00 05/13/17 13:00 05/13/17 13:00 - Labs Labs: 05/13/17 11:55 05/13/17 11:55 PT 13.4 Seconds (9.8-13.1) H 05/12/17 06:35 INR 1.3 (0.9-1.2) H 05/12/17 06:35 APTT 25.3 Seconds (25.6-37.1) L 05/12/17 06:35 Attending/Attestation - Attestation I have personally seen and examined this patient.: Yes I have fully participated in the care of the patient.: Yes I have reviewed all pertinent clinical information, including history, physical exam and plan: Yes Notes (Text): 05/16/17 19:06 Pt was seen and examined at bedside Agree with above note and assessment Pt with Cholecystitis with adjacent Large Liver cyst S/P Cholecystostomy tube Pt can be DC home F.U as out Plan d.w pt in detail Risk and benefit explained in detail.
[2017-05-12] MEDS ORDERED: Oxycodone/Acetaminophen 5/325 mg Tab PO PRN (07:33)
[2017-05-12 07:56] LABS: BASO % 0.1 % (0.0-2.0); HEMATOCRIT 29.9 % (34.0-47.0); LYMPH # 1.1 K/uL (1.0-4.3); LYMPH % 7.1 % (20.0-40.0); MEAN CELL VOLUME 90.7 fl (81.0-99.0); MEAN CORPUSCULAR HEMOGLOBIN 29.6 pg (27.0-31.0); MEAN CORPUSCULAR HGB CONC 32.6 g/dL (33.0-37.0); MONO # 0.7 K/uL (0.0-0.8); MONO % 4.7 % (0.0-10.0); NEUT # 13.4 K/uL (1.8-7.0); NEUT % 88.1 % (50.0-75.0); PLATELET COUNT 201 K/uL (130-400); WHITE BLOOD COUNT 15.3 K/uL (4.8-10.8)
[2017-05-12 08:16] LABS: ALB/GLOB RATIO 0.9 (1.0-2.1); ALT/SGPT 62 U/L (9-52); AST/SGOT 58 U/L (14-36); BILIRUBIN,TOTAL 0.7 mg/dl (0.2-1.3); BLOOD UREA NITROGEN 10 mg/dl (7-17); CALCIUM 8.3 mg/dL (8.4-10.2); CARBON DIOXIDE 29 mmol/L (22-30); CHLORIDE 103 mmol/L (98-107); GFR AFRICAN-AMERICAN > 60; GLUCOSE,RANDOM 150 mg/dL (65-105); POTASSIUM 3.6 MMOL/L (3.6-5.0); SODIUM 140 mmol/l (132-148); TOTAL PROTEIN 6.4 G/DL (6.3-8.2)
[2017-05-12 08:17] LABS: ALKALINE PHOSPHATASE 281 U/L (38-126)
[2017-05-12 08:33] LABS: PARTIAL THROMBOPLASTIN TIME 25.3 Seconds (25.6-37.1)
[2017-05-12 10:29] LABS: NEUTROPHIL 85 % (42-75); TOTAL CELLS COUNTED 100
[2017-05-12 10:30] LABS: LARGE PLATELETS PRESENT
--- NOTE | 2017-05-12 12:32 | CP.PCM.PN ---
Subjective - Date & Time of Evaluation Date of Evaluation: 05/12/17 Time of Evaluation: 09:00 - Subjective Subjective: events noted IV rx in progress Objective - Vital Signs/Intake and Output Vital Signs (last 24 hours): Temp Pulse Resp BP Pulse Ox 99.4 F 85 18 121/78 96 05/12/17 08:36 05/12/17 08:36 05/12/17 08:36 05/12/17 08:36 05/12/17 08:36 - Medications Medications: Current Medications Acetaminophen (Tylenol 650 Mg Supp) 650 mg [place] Q6 PRN PRN Reason: Fever >100.4 F Last Admin: 05/10/17 09:11 Dose: 650 mg Hydromorphone HCl (Dilaudid) 1 mg IVP Q4 PRN PRN Reason: Pain, moderate (4-7) Last Admin: 05/12/17 08:08 Dose: 1 mg Sodium Chloride (Sodium Chloride 0.9%) 1,000 mls @ 150 mls/hr IV .Q6H40M [facility] Last Admin: 05/12/17 07:51 Dose: Not Given Meropenem 1 gm/ Sodium (Chloride) 100 mls @ 100 mls/hr IVPB Q8 [facility] Stop: 05/15/17 09:59 Last Admin: 05/12/17 09:07 Dose: 100 mls/hr Sodium Chloride (Sodium Chloride 0.9%) 1,000 mls @ 100 mls/hr IV .Q10H [facility] Last Admin: 05/12/17 07:51 Dose: Not Given Vancomycin HCl 1 gm/ Sodium (Chloride) 250 mls @ 166.667 mls/hr IVPB Q12@1100, 2300 [facility] Last Admin: 05/12/17 11:08 Dose: 166.667 mls/hr Ondansetron HCl (Zofran Inj) 4 mg IVP Q6 PRN PRN Reason: Nausea/Vomiting Last Admin: 05/12/17 02:33 Dose: 4 mg Oxycodone/Acetaminophen (Percocet 5/325 Mg Tab) 2 tab PO Q4 PRN PRN Reason: Pain, severe (8-10) Stop: 05/15/17 07:34 Pantoprazole Sodium (Protonix Inj) 40 mg IVP DAILY [facility] Last Admin: 05/12/17 09:09 Dose: 40 mg - Labs Labs: 05/12/17 06:35 05/12/17 06:35 PT 13.4 Seconds (9.8-13.1) H 05/12/17 06:35 INR 1.3 (0.9-1.2) H 05/12/17 06:35 APTT 25.3 Seconds (25.6-37.1) L 05/12/17 06:35 - Constitutional Appears: Non-toxic, Chronically Ill - Head Exam Head Exam: NORMOCEPHALIC - Eye Exam Eye Exam: PERRL - ENT Exam ENT Exam: Mucous Membranes Dry, Normal External Ear Exam - Neck Exam Neck Exam: absent: Lymphadenopathy - Respiratory Exam Respiratory Exam: Decreased Breath Sounds - Cardiovascular Exam Cardiovascular Exam: REGULAR RHYTHM - GI/Abdominal Exam GI & Abdominal Exam: Distended Assessment and Plan (1) Cholelithiasis Status: Acute (2) Hepatic cyst Status: Acute (3) Sepsis Status: Acute
--- NOTE | 2017-05-12 18:44 | CP.PCM.PN ---
Subjective - Date & Time of Evaluation Date of Evaluation: 05/12/17 Time of Evaluation: 11:15 - Subjective Subjective: Pt seen and examined. Complained of feeling sore on RUQ but claimed she felt much better than before. Objective - Vital Signs/Intake and Output Vital Signs (last 24 hours): Temp Pulse Resp BP Pulse Ox 98.6 F 81 20 136/93 H 98 05/12/17 16:07 05/12/17 16:07 05/12/17 16:07 05/12/17 16:07 05/12/17 16:07 - Medications Medications: Current Medications Acetaminophen (Tylenol 650 Mg Supp) 650 mg [place] Q6 PRN PRN Reason: Fever >100.4 F Last Admin: 05/10/17 09:11 Dose: 650 mg Hydromorphone HCl (Dilaudid) 1 mg IVP Q4 PRN PRN Reason: Pain, moderate (4-7) Last Admin: 05/12/17 18:23 Dose: 1 mg Sodium Chloride (Sodium Chloride 0.9%) 1,000 mls @ 150 mls/hr IV .Q6H40M [facility] Last Admin: 05/12/17 07:51 Dose: Not Given Meropenem 1 gm/ Sodium (Chloride) 100 mls @ 100 mls/hr IVPB Q8 [facility] Stop: 05/15/17 09:59 Last Admin: 05/12/17 16:34 Dose: 100 mls/hr Sodium Chloride (Sodium Chloride 0.9%) 1,000 mls @ 100 mls/hr IV .Q10H [facility] Last Admin: 05/12/17 07:51 Dose: Not Given Vancomycin HCl 1 gm/ Sodium (Chloride) 250 mls @ 166.667 mls/hr IVPB Q12@1100, 2300 [facility] Last Admin: 05/12/17 11:08 Dose: 166.667 mls/hr Ondansetron HCl (Zofran Inj) 4 mg IVP Q6 PRN PRN Reason: Nausea/Vomiting Last Admin: 05/12/17 16:30 Dose: 4 mg Oxycodone/Acetaminophen (Percocet 5/325 Mg Tab) 2 tab PO Q4 PRN PRN Reason: Pain, severe (8-10) Stop: 05/15/17 07:34 Pantoprazole Sodium (Protonix Inj) 40 mg IVP DAILY [facility] Last Admin: 05/12/17 09:09 Dose: 40 mg - Labs Labs: 05/12/17 06:35 05/12/17 06:35 PT 13.4 Seconds (9.8-13.1) H 05/12/17 06:35 INR 1.3 (0.9-1.2) H 05/12/17 06:35 APTT 25.3 Seconds (25.6-37.1) L 05/12/17 06:35 - Constitutional Appears: No Acute Distress - Head Exam Head Exam: ATRAUMATIC - Eye Exam Eye Exam: absent: Scleral icterus - ENT Exam ENT Exam: Mucous Membranes Moist - Neck Exam Neck Exam: absent: Meningismus - Respiratory Exam Respiratory Exam: absent: Rhonchi, Wheezes, Respiratory Distress - Cardiovascular Exam Cardiovascular Exam: REGULAR RHYTHM, +S1, +S2 - GI/Abdominal Exam GI & Abdominal Exam: Soft. absent: Tenderness Additional comments: cholecystostomy tube draining dark villous material. - Rectal Exam Rectal Exam: Deferred - Neurological Exam Neurological Exam: Alert, Oriented x3 - Psychiatric Exam Psychiatric exam: Normal Affect - Skin Skin Exam: Dry, Intact Assessment and Plan (1) Sepsis Status: Acute (2) Cholecystitis Status: Acute (3) DVT prophylaxis Status: Acute - Assessment and Plan (Free Text) Assessment: 41 yo female with no significant PMH came in complaining of persistent RUQ and epigastric pain radiating to the back since 5 days ago accompanied with fever and nausea. She was seen in the ER and was discharged with a diagnosis of cholecystitis. She was advised to see Dr Reich in his office for an elective cholecystectomy. However her condition did not improved so patient went back to ER and was finally admitted. 1. Sepsis secondary to cholecystitis afebrile more than 24 hrs but WBC remained elevated WBC:15.6 continue to have mild pain on RUQ WBC ELEVATED, LFTs elevated TBILI remained within normal range continue Meropenem and Vancomycin 2. Liver Cyst Surgical Consult with Dr. Apple MRI Abd/Liver w contrast for cyst, per surgery concern for echinococcal cyst vs. hemangioma HIDA+ IR for cholecystostomy tube PICC placed 3. DVT prophylaxis venodyne boots while on bed
[2017-05-13] MEDS: Meropenem 1 GM in Sodium Chloride 0.9% 100 ML IVPB SCH ×2 (01:02→09:15)
[2017-05-13 07:26] VITALS: O2SAT 97
[2017-05-13] MEDS: Sodium Chloride 0.9% 1,000 ML IV SCH ×3 (07:28→12:36)
[2017-05-13] MEDS ORDERED: Oxycodone/Acetaminophen 5/325 mg Tab PO PRN (10:59)
--- NOTE | 2017-05-13 11:18 | CP.PCM.PN ---
<Nancy Zamorano - Last Filed: 05/13/17 11:16> Subjective - Date & Time of Evaluation Date of Evaluation: 05/13/17 Time of Evaluation: 11:16 - Subjective Subjective: General Surgery - Dr. Reich Pt S&E. SONJA. PT complaining of worsening epigastric/RUQ pain radiating to the back. She states pain medication given this morning helped somewhat but the pain returned. She is tolerating small amount of liquids but now experiencing nausea, no vomiting. No F/C, SOB/Cp. She has been OOB ambulating. Cholecystostomy tube in place w/ 175 bilious drainage/24hrs Objective - Vital Signs/Intake and Output Vital Signs (last 24 hours): Temp Pulse Resp BP Pulse Ox 99.1 F 72 18 146/81 97 05/13/17 09:00 05/13/17 09:00 05/13/17 09:00 05/13/17 09:00 05/13/17 09:00 - Medications Medications: Current Medications Acetaminophen (Tylenol 650 Mg Supp) 650 mg [place] Q6 PRN PRN Reason: Fever >100.4 F Last Admin: 05/10/17 09:11 Dose: 650 mg Sodium Chloride (Sodium Chloride 0.9%) 1,000 mls @ 150 mls/hr IV .Q6H40M [facility] Last Admin: 05/13/17 07:29 Dose: Not Given Meropenem 1 gm/ Sodium (Chloride) 100 mls @ 100 mls/hr IVPB Q8 [facility] Stop: 05/15/17 09:59 Last Admin: 05/13/17 09:15 Dose: 100 mls/hr Sodium Chloride (Sodium Chloride 0.9%) 1,000 mls @ 100 mls/hr IV .Q10H [facility] Last Admin: 05/13/17 07:28 Dose: Not Given Vancomycin HCl 1 gm/ Sodium (Chloride) 250 mls @ 166.667 mls/hr IVPB Q12@1100, 2300 [facility] Last Admin: 05/12/17 22:17 Dose: 166.667 mls/hr Ondansetron HCl (Zofran Inj) 4 mg IVP Q6 PRN PRN Reason: Nausea/Vomiting Last Admin: 05/13/17 10:46 Dose: 4 mg Oxycodone/Acetaminophen (Percocet 5/325 Mg Tab) 2 tab PO Q4 PRN PRN Reason: Pain, moderate (4-7) Stop: 05/15/17 07:34 Pantoprazole Sodium (Protonix Inj) 40 mg IVP DAILY [facility] Last Admin: 05/13/17 09:16 Dose: 40 mg - Labs Labs: 05/12/17 06:35 05/12/17 06:35 PT 13.4 Seconds (9.8-13.1) H 05/12/17 06:35 INR 1.3 (0.9-1.2) H 05/12/17 06:35 APTT 25.3 Seconds (25.6-37.1) L 05/12/17 06:35 - Constitutional Appears: No Acute Distress - Head Exam Head Exam: ATRAUMATIC, NORMAL INSPECTION, NORMOCEPHALIC - Eye Exam Eye Exam: Normal appearance - Respiratory Exam Respiratory Exam: NORMAL BREATHING PATTERN. absent: Respiratory Distress - Cardiovascular Exam Cardiovascular Exam: REGULAR RHYTHM - GI/Abdominal Exam GI & Abdominal Exam: Firm (palpable cyst ruq), Guarding, Soft, Tenderness ( epigastric and RUQ). absent: Distended, Rigid - Neurological Exam Neurological Exam: Alert, Oriented x3 - Psychiatric Exam Psychiatric exam: Normal Affect, Normal Mood - Skin Skin Exam: Dry, Intact Assessment and Plan - Assessment and Plan (Free Text) Assessment: 41F w/ acute cholecystitis and hepatic cyst, s/p cholecystostomy tube 05/11 -Continue PO intake as tolerated -Continue IVF, IV Abx, Pain control -Monitor joceline tube -Encourage OOB/Ambulation -F/U Labs Will DW DR Rachana Zamorano PGY3 <Charles Reich B - Last Filed: 05/16/17 19:44> Objective - Vital Signs/Intake and Output Vital Signs (last 24 hours): Temp Pulse Resp BP Pulse Ox 99.0 F 68 19 138/78 97 05/13/17 13:00 05/13/17 13:00 05/13/17 13:00 05/13/17 13:00 05/13/17 13:00 - Labs Labs: 05/13/17 11:55 05/13/17 11:55 PT 13.4 Seconds (9.8-13.1) H 05/12/17 06:35 INR 1.3 (0.9-1.2) H 05/12/17 06:35 APTT 25.3 Seconds (25.6-37.1) L 05/12/17 06:35 Attending/Attestation - Attestation I have personally seen and examined this patient.: Yes I have fully participated in the care of the patient.: Yes I have reviewed all pertinent clinical information, including history, physical exam and plan: Yes Notes (Text): 05/16/17 19:43 Pt was seen and examined at bedside Agree with above note and assessment S/P Cholecystostomy tube DC plan with PO antibiotics F.U as out pt Plan d.w pt in detail.
[2017-05-13 12:04] LABS: BASO % 0.3 % (0.0-2.0); EOS % 0.3 % (0.0-4.0); HEMATOCRIT 29.5 % (34.0-47.0); LYMPH # 1.3 K/uL (1.0-4.3); LYMPH % 10.3 % (20.0-40.0); MEAN CELL VOLUME 88.1 fl (81.0-99.0); MEAN CORPUSCULAR HEMOGLOBIN 29.6 pg (27.0-31.0); MEAN CORPUSCULAR HGB CONC 33.5 g/dL (33.0-37.0); MEAN PLATELET VOLUME 7.7 fl (7.2-11.7); MONO # 0.8 K/uL (0.0-0.8); MONO % 6.3 % (0.0-10.0); NEUT # 10.7 K/uL (1.8-7.0); NEUT % 82.8 % (50.0-75.0); NRBC % 0.1 % (0.0-0.0); WHITE BLOOD COUNT 12.9 K/uL (4.8-10.8)
[2017-05-13] MEDS ORDERED: HYDROmorphone 0.5 mg/0.5 ml ISec IVP PRN (12:20)
[2017-05-13 12:29] LABS: ALB/GLOB RATIO 0.8 (1.0-2.1); ALKALINE PHOSPHATASE 199 U/L (38-126); ALT/SGPT 53 U/L (9-52); AST/SGOT 39 U/L (14-36); BILIRUBIN,TOTAL 0.9 mg/dl (0.2-1.3); BLOOD UREA NITROGEN 6 mg/dl (7-17); CALCIUM 7.8 mg/dL (8.4-10.2); CARBON DIOXIDE 28 mmol/L (22-30); CHLORIDE 99 mmol/L (98-107); GFR AFRICAN-AMERICAN > 60; GLUCOSE,RANDOM 155 mg/dL (65-105); LIPASE 118 U/L (23-300); POTASSIUM 3.4 MMOL/L (3.6-5.0); SODIUM 135 mmol/l (132-148); TOTAL PROTEIN 6.4 G/DL (6.3-8.2)
[2017-05-13 14:21] VITALS: BP 138/78; PULSE 68; RESP 19; TEMP 99
--- NOTE | 2017-05-13 14:57 | CP.PCM.DIS ---
Provider - Provider Date of Admission: 05/08/17 10:09 Attending physician: Mauricio Wright MD Consults: Dr Rachana Reddy Time Spent in preparation of Discharge (in minutes): 25 Diagnosis - Discharge Diagnosis (1) Sepsis Status: Acute Comment: improved. continue on PO Cipro 500mg BID for 3 weeks (2) Cholecystitis Status: Acute Comment: to follow with Dr Reich in 2 weeks. continue Cipro 500mg PO BID for 3 weeks. for possible elective cholecystectomy (3) Hepatic cyst Status: Acute Comment: follow up with Dr Clifton and [facility] Course - Lab Results Lab Results: Most Recent Lab Values WBC 12.9 K/uL (4.8-10.8) H 05/13/17 11:55 RBC 3.35 Mil/uL (3.80-5.20) L 05/13/17 11:55 Hgb 9.9 g/dL (12.0-16.0) L 05/13/17 11:55 Hct 29.5 % (34.0-47.0) L 05/13/17 11:55 MCV 88.1 fl (81.0-99.0) D 05/13/17 11:55 MCH 29.6 pg (27.0-31.0) 05/13/17 11:55 MCHC 33.5 g/dL (33.0-37.0) 05/13/17 11:55 RDW 14.0 % (11.5-14.5) 05/13/17 11:55 Plt Count 182 K/uL (130-400) 05/13/17 11:55 MPV 7.7 fl (7.2-11.7) 05/13/17 11:55 Neut % (Auto) 82.8 % (50.0-75.0) H 05/13/17 11:55 Lymph % (Auto) 10.3 % (20.0-40.0) L 05/13/17 11:55 Daniels % (Auto) 6.3 % (0.0-10.0) 05/13/17 11:55 Eos % (Auto) 0.3 % (0.0-4.0) 05/13/17 11:55 Baso % (Auto) 0.3 % (0.0-2.0) 05/13/17 11:55 Neut # 10.7 K/uL (1.8-7.0) H 05/13/17 11:55 Lymph # 1.3 K/uL (1.0-4.3) 05/13/17 11:55 Daniels # 0.8 K/uL (0.0-0.8) 05/13/17 11:55 Eos # 0.0 K/uL (0.0-0.7) 05/13/17 11:55 Baso # 0.0 K/uL (0.0-0.2) 05/13/17 11:55 Neutrophils % (Manual) 85 % (42-75) H 05/12/17 06:35 Band Neutrophils % 4 % (0-2) H 05/12/17 06:35 Lymphocytes % (Manual) 7 % (20-50) L 05/12/17 06:35 Monocytes % (Manual) 4 % (0-10) 05/12/17 06:35 Platelet Estimate Normal (NORMAL) 05/12/17 06:35 Large Platelets Present 05/12/17 06:35 Hypochromasia (manual) Slight 05/12/17 06:35 Anisocytosis (manual) Slight 05/09/17 05:30 PT 13.4 Seconds (9.8-13.1) H 05/12/17 06:35 INR 1.3 (0.9-1.2) H 05/12/17 06:35 APTT 25.3 Seconds (25.6-37.1) L 05/12/17 06:35 pO2 55 mm/Hg (30-55) 05/08/17 10:55 VBG pH 7.43 (7.32-7.43) 05/08/17 10:55 VBG pCO2 40 mmHg (40-60) 05/08/17 10:55 VBG HCO3 26.3 mmol/L 05/08/17 10:55 VBG Total CO2 27.7 mmol/L (22-28) 05/08/17 10:55 VBG O2 Sat (Calc) 95.4 % (40-65) H 05/08/17 10:55 VBG Base Excess 2.0 mmol/L (0.0-2.0) 05/08/17 10:55 VBG Potassium 3.8 mmol/L (3.6-5.2) 05/08/17 10:55 Sodium 135.0 mmol/L (132-148) 05/08/17 10:55 Chloride 103.0 mmol/L (98-107) 05/08/17 10:55 Glucose 164 mg/dL (65-105) H 05/08/17 10:55 Lactate 0.7 mmol/L (0.7-2.1) 05/08/17 10:55 FiO2 21.0 % 05/08/17 10:55 Sodium 135 mmol/l (132-148) 05/13/17 11:55 Potassium 3.4 MMOL/L (3.6-5.0) L 05/13/17 11:55 Chloride 99 mmol/L (98-107) 05/13/17 11:55 Carbon Dioxide 28 mmol/L (22-30) 05/13/17 11:55 Anion Gap 11 (10-20) 05/13/17 11:55 BUN 6 mg/dl (7-17) L 05/13/17 11:55 Creatinine 0.4 mg/dL (0.7-1.2) L 05/13/17 11:55 Est GFR ( Amer) > 60 05/13/17 11:55 Est GFR (Non-Af Amer) > 60 05/13/17 11:55 Random Glucose 155 mg/dL (65-105) H 05/13/17 11:55 Calcium 7.8 mg/dL (8.4-10.2) L 05/13/17 11:55 Total Bilirubin 0.9 mg/dl (0.2-1.3) 05/13/17 11:55 AST 39 U/L (14-36) H D 05/13/17 11:55 ALT 53 U/L (9-52) H 05/13/17 11:55 Alkaline Phosphatase 199 U/L (38-126) H D 05/13/17 11:55 Total Protein 6.4 G/DL (6.3-8.2) 05/13/17 11:55 Albumin 2.9 g/dL (3.5-5.0) L 05/13/17 11:55 Globulin 3.5 gm/dL (2.2-3.9) 05/13/17 11:55 Albumin/Globulin Ratio 0.8 (1.0-2.1) L 05/13/17 11:55 Lipase 118 U/L (23-300) 05/13/17 11:55 Venous Blood Potassium 3.8 mmol/L (3.6-5.2) 05/08/17 10:55 Urine Color Yellow (YELLOW) 05/08/17 07:30 Urine Clarity Slighty-cloudy (Clear) 05/08/17 07:30 Urine pH 7.0 (5.0-8.0) 05/08/17 07:30 Ur Specific [place] > 1.060 (1.003-1.030) H 05/08/17 07:30 Urine Protein Negative mg/dL (NEGATIVE) 05/08/17 07:30 Urine Glucose (UA) Neg mg/dL (Normal) 05/08/17 07:30 Urine Ketones Negative mg/dL (NEGATIVE) 05/08/17 07:30 Urine Blood Moderate (NEGATIVE) 05/08/17 07:30 Urine Nitrate Negative (NEGATIVE) 05/08/17 07:30 Urine Bilirubin Negative (NEGATIVE) 05/08/17 07:30 Urine Urobilinogen 4.0 mg/dL (0.2-1.0) H 05/08/17 07:30 Ur Leukocyte Esterase Neg [place]/uL (Negative) 05/08/17 07:30 Urine RBC (Auto) 11 /hpf (0-3) H 05/08/17 07:30 Ur Squamous Epith Cells 5 /hpf (0-5) 05/08/17 07:30 Amorphous Sediment Rare /ul (<OCC) H 05/08/17 07:30 Vancomycin Trough < 5.0 ug/mL (5.0-10.0) L 05/13/17 10:30 Echinococcus IgG Ab WB Negative 05/08/17 17:00 Hepatitis A IgM Ab Negative (NEGATIVE) 05/10/17 11:32 Hep Bs Antigen Negative (NEGATIVE) 05/10/17 11:32 Hep B Core IgM Ab Negative (NEGATIVE) 05/10/17 11:32 Hepatitis C Antibody Negative (NEGATIVE) 05/10/17 11:32 HIV 1&2 Antibody Screen Negative (NEGATIVE) 05/10/17 11:32 - Hospital Course Hospital Course: 41 yo female with no significant PMH came in because of persistent RUQ and epigastric pain radiating to the back since 5 days ago accompanied with fever and nausea. She was seen in the ER and was discharged with a diagnosis of cholecystitis and large left hepatic cyst. She was advised to see Dr Reich in his office for an elective cholecystectomy and out patient management of hepatic cyst. Her condition however did not improved so patient went back to ER and was finally admitted. She was started on IV Zosyn and Flagyl which later were switched to Vanco and Meropenem. Dr Reich was reconsulted and he recommended cholecystostomy tube be inserted. Blood culture grew Coagulase Negative Staph Aureus and Enterobacter both sensitive to Cipro. ID consult with Dr Reddy was called and he advised that patient maybe started on Cipro as outpatient since Staph Aureus were probably just a contaminant. The patient was discharged in stable condition with cholecystostomy tube in place. She will follow up with Dr Reich in 2 weeks. Discharge Exam - Head Exam Head Exam: ATRAUMATIC, NORMAL INSPECTION, NORMOCEPHALIC - Eye Exam Eye Exam: absent: Scleral icterus - ENT Exam ENT Exam: Mucous Membranes Moist - Respiratory Exam Respiratory Exam: absent: Wheezes, Respiratory Distress - Cardiovascular Exam Cardiovascular Exam: REGULAR RHYTHM, +S1, +S2 - GI/Abdominal Exam GI & Abdominal Exam: Soft. absent: Tenderness Additional comments: cholecystostomy tube in placed - Rectal Exam Rectal Exam: Deferred - Neurological Exam Neurological exam: Alert, Oriented x3 - Psychiatric Exam Psychiatric exam: Normal Affect - Skin Skin Exam: Diaphoretic, Intact Discharge Plan - Discharge Medications Prescriptions: Acetaminophen [Tylenol 325mg tab] 650 mg PO Q6 PRN #20 tab PRN Reason: Pain, Mild (1-3) Ciprofloxacin [Cipro] 500 mg PO BID #42 tab oxyCODONE/Acetaminophen [Percocet 5/325 mg Tab] 1 tab PO Q4 PRN #20 tab PRN Reason: Pain, Moderate (4-7) Prochlorperazine Maleate [Compazine] 5 mg PO Q6 PRN #16 tablet PRN Reason: nausea and vomiting - Follow Up Plan Condition: FAIR Disposition: HOME/ ROUTINE Instructions: Gallstones (DC) Referrals: Charles Reich MD [Staff Provider] -
--- NOTE | 2017-05-13 18:13 | CARD ---
APPROVED REPORT EXAM: Two-dimensional and M-mode echocardiogram with Doppler and color Doppler. Other Information Quality : AverageRhythm : NSR INDICATION Infection: 2D DIMENSIONS IVSd1.01 (0.7-1.1cm)LVDd5.17 (3.9-5.9cm) LVOT Diameter2.18 (1.8-2.4cm)PWd0.93 (0.7-1.1cm) IVSs1.22 (0.8-1.2cm)LVDs3.38 (2.5-4.0cm) FS (%) 34.6 %PWs1.28 (0.8-1.2cm) M-Mode DIMENSIONS Left Atrium (MM)4.06 (2.5-4.0cm)IVSd0.71 (0.7-1.1cm) Aortic Root3.24 (2.2-3.7cm)LVDd6.44 (4.0-5.6cm) Aortic Cusp Exc.1.97 (1.5-2.0cm)PWd0.88 (0.7-1.1cm) IVSs0.82 cmFS (%) 20 % LVDs5.18 (2.0-3.8cm)PWs1.12 cm Mitral Valve MV E Ufoupoep932.0cm/sMV DECEL [id number] A Rvahrhvb72.2cm/s MV HGF27maP/A ratio1.1MVA (PHT)3.90cm2 TDI Lateral E' Peak V11.24cm/sMedial E' Peak V10.92cm/sE/Lateral E'9.1 E/Medial E'9.3 Pulmonary Valve PV Peak Jtfyphrj254.3cm/s Tricuspid Valve TR Peak Zgqyyvkf769lm/sRAP [id number] Peak Gr.19mmHg AHQJ60nmRu LEFT VENTRICLE The left ventricle is normal size. There is normal left ventricular wall thickness. The left ventricular function is normal. The left ventricular ejection fraction is 55% There is normal LV segmental wall motion. The left ventricular diastolic function is normal. No left ventricle thrombus noted on this study. There is no ventricular septal defect visualized. There is no left ventricular aneurysm. There is no mass noted in the left ventricle. RIGHT VENTRICLE The right ventricle is normal size. There is normal right ventricular wall thickness. The right ventricular systolic function is normal. ATRIA The left atrium size is normal. The right atrium size is normal. The interatrial septum is intact with no evidence for an atrial septal defect. AORTIC VALVE The aortic valve is normal in structure and function. No aortic regurgitation is present. There is no aortic valvular stenosis. There is no aortic valvular vegetation. MITRAL VALVE The mitral valve is normal in structure and function. There is no evidence of mitral valve prolapse. There is no mitral valve stenosis. There is no mitral valve regurgitation noted. TRICUSPID VALVE The tricuspid valve is normal in structure and function. There is no tricuspid valve regurgitation noted. There is no tricuspid valve prolapse or vegetation. There is no tricuspid valve stenosis. PULMONIC VALVE The pulmonary valve is normal in structure and function. There is no pulmonic valvular regurgitation. There is no pulmonic valvular stenosis. GREAT VESSELS The aortic root is normal in size. The ascending aorta is normal in size. The IVC is normal in size and collapses >50% with inspiration. PERICARDIAL EFFUSION The pericardium appears normal. There is no pleural effusion. <Conclusion> Normal Cardiac Echocardiogram Incidentally Noted is Large Fluid Filled Cyst in Liver
--- NOTE | 2017-05-17 09:27 | CT ---
PROCEDURE: Date of procedure: 05/11/2017 Procedure: 1. Percutaneous Cholecystostomy tube placement Medications: The patient was sedated by the anesthesiologist along with physiologic monitoring. 8 cubic centimeters lidocaine 2 percent Fluoro time: 116.4 seconds Radiation: 57.74 mGy HISTORY: Acute cholecystitis TECHNIQUE: Following informed consent the patient right abdomen was marked. The patient was placed supine on the interventional table and procedure time-out was called. Ultrasound showed distended gallbladder. At the patient sedated, the skin was anesthetized with 2 percent lidocaine. Under direct ultrasound guidance, a [place] catheter was advanced percutaneously into the gallbladder. Upon return of bile, an 035 wire was advanced into the gallbladder and was coiled within the gallbladder under fluoroscopy. The tract was dilated to accommodate 8.5 [place] drainage catheter which was formed within the gallbladder. Position of the catheter was confirmed with contrast injection which showed a distended gallbladder. There is no contrast flowing across the cystic duct into the CBD. IMPRESSION: Percutaneous placement of a cholecystostomy tube.
--- NOTE | 2017-05-19 11:16 | VASCULAR ---
PROCEDURE: Date of procedure: 05/11/2017 Procedure: 1. Placement of a right arm PICC with ultrasound and fluoroscopic guidance, CPT 56805 2. PICC tip confirmation with spot radiograph and is in the superior vena cava Medications: 1 percent lidocaine Total Fluoro time: 4 seconds Radiation: 2 mGy EBL: 2 cc HISTORY: Infection requiring long-term IV antibiotics TECHNIQUE: Following informed consent and procedure time-out, the patient was placed supine on the interventional table and the right arm prepped and draped in the usual sterile fashion. Ultrasound showed a patent and compressible right basilic vein. After the skin was anesthetized with lidocaine, the basilic vein was accessed with micro micropuncture technique using ultrasound guidance. A guidewire was then advanced under fluoroscopic guidance into the superior vena cava. An image documenting ultrasound guidance for vascular access was permanently saved. The length of the single-lumen 4 [place] PICC was trimmed to 39 centimeters and advanced through a peel-away sheath. The PICC was position with tip of PICC confirm a spot radiograph the superior vena cava. The PICC was secured to the patient's skin. The PICC was flushed. A biopatch and sterile dressing was applied. IMPRESSION: Placement of a single-lumen 4 [place]ian PICC trimmed to 39 centimeters via right basilic vein. The tip of the PICC is confirmed with spot radiograph and is in the superior vena cava.
== END 2017-05-13 15:50 | disposition home or self-care (01) | DRG 901 ==
LOC: H.ER 07:06 → H.ERHOLD 10:09 → H.TEL 12:42 → H.MEDSURG1 05-11 16:20
PROC: B518ZZA Fluoroscopy of Superior Vena Cava, Guidance (ICD-10-PCS; 2017-05-11)
PROC: 0F943ZX Drainage of Gallbladder, Percutaneous Approach, Diagnostic (ICD-10-PCS; 2017-05-11)
PROC: 02HV33Z Insertion of Infusion Device into Superior Vena Cava, Percutaneous Approach (ICD-10-PCS; principal; 2017-05-11 15:30)
DX: A41.9 Sepsis, unspecified organism (principal); K80.00 Calculus of gallbladder with acute cholecystitis without obstruction; K76.89 Other specified diseases of liver; K43.9 Ventral hernia without obstruction or gangrene

== ENCOUNTER 2017-05-19 11:27 | Emergency (ER) | payer SELFPAY ==
[2017-05-19 11:30] VITALS: BMI 46.0
[2017-05-19 11:31] VITALS: RESP 18
--- NOTE | 2017-05-19 12:00 | ED PDOC ---
HPI: General Adult Time Seen by Provider: 05/19/17 11:30 Chief Complaint (Provider): Abd pain History Per: Patient History/Exam Limitations: no limitations Onset/Duration Of Symptoms: Days (1 week) Current Symptoms Are (Timing): Still Present Additional Complaint(s): Pt. had gallstones and fluid around gall bladder. Had tube placed by IR and got antibiotics in the hospital. Was dc Thurs. Here today to get check up on tube and has mild abd pain at tube insertion site. No dc or erythema at site. No nausea, vomit, diarrhea, fever, weakness. No back pain or dysuria. Past Medical History Reviewed: Nursing Documentation, Vital Signs Vital Signs: Last Vital Signs Temp 99.1 F 05/19/17 11:30 Pulse 84 05/19/17 11:30 Resp 18 05/19/17 11:30 BP 129/80 05/19/17 11:30 Pulse Ox 100 05/19/17 12:02 - Medical History PMH: Gall Bladder Disease Denies: Chronic Kidney Disease - Surgical History Other surgeries: tube for drainage around gall bladder - Family History Family History: States: Unknown Family Hx - Living Arrangements Living Arrangements: With Family - Social History Current smoker - smoking cessation education provided: No Alcohol: None Drugs: Denies - Home Medications Home Medications: Ambulatory Orders Medication Instructions Recorded Acetaminophen [Tylenol 325mg tab] 650 mg PO Q6 PRN #20 tab 05/13/17 Ciprofloxacin [Cipro] 500 mg PO BID #42 tab 05/13/17 Prochlorperazine Maleate 5 mg PO Q6 PRN #16 tablet 05/13/17 [Compazine] oxyCODONE/Acetaminophen [Percocet 1 tab PO Q4 PRN #20 tab 05/13/17 5/325 mg Tab] Ibuprofen [Motrin] 600 mg PO TID 7 Days 05/19/17 - Allergies Allergies/Adverse Reactions: Allergies Allergy/AdvReac Type Severity Reaction Status Date / Time No Known Allergies Allergy Verified 05/08/17 07:19 Review of Systems ROS Statement: Except As Marked, All Systems Reviewed And Found Negative Gastrointestinal: Positive for: Abdominal Pain Physical Exam - Reviewed Nursing Documentation Reviewed: Yes Vital Signs Reviewed: Yes - Physical Exam Appears: Positive for: Non-toxic, No Acute Distress Head Exam: Positive for: ATRAUMATIC, NORMAL INSPECTION, NORMOCEPHALIC Skin: Positive for: Normal Color, Warm, DRY Eye Exam: Positive for: EOMI, Normal appearance, PERRL ENT: Positive for: Normal ENT Inspection Neck: Positive for: Normal, Painless ROM Cardiovascular/Chest: Positive for: Regular Rate, Rhythm Respiratory: Positive for: CNT, Normal Breath Sounds Gastrointestinal/Abdominal: Positive for: Bowel Sounds, Soft, Tenderness (mild left upper quadrant with drain in place with no dc or erythema) Back: Positive for: Normal Inspection. Negative for: L CVA Tenderness, R CVA Tenderness Extremity: Positive for: Normal ROM Neurologic/Psych: Positive for: Alert, Oriented - Laboratory Results Result Diagrams: 05/19/17 12:20 05/19/17 12:20 Interpretation Of Abn Labs: no acute - ECG O2 Sat by Pulse Oximetry: 100 Pulse Ox Interpretation: Normal - Progress ED Course And Treament: 1318: Stable. AAOx3. Pain free. Tolerated PO. Surgery saw pt. and want pt. to be dc and fu with Dr. Brody shelton surgery in 1 week. Drain functioning well. Disposition - Clinical Impression Clinical Impression: Abdominal pain - Patient ED Disposition Is Patient to be Admitted: No Counseled Patient/Family Regarding: Studies Performed, Diagnosis, Need For Followup, Rx Given - Disposition Referrals: Charles Reich MD [Staff Provider] - 05/27/17 Disposition: Routine/Home Disposition Time: 13:20 Condition: STABLE Additional Instructions: Return if not better in 3 days. Prescriptions: Ibuprofen [Motrin] 600 mg PO TID 7 Days Instructions: Abdominal Pain (ED) Forms: [employer] (Romanian) Print Language: CITIZEN OF [place]
[2017-05-19] MEDS ORDERED: Sodium Chloride 0.9% 500 ML IV STA (12:01)
[2017-05-19 12:25] LABS: BASO # 0.1 K/uL (0.0-0.2); BASO % 0.8 % (0.0-2.0); EOS # 0.1 K/uL (0.0-0.7); EOS % 1.5 % (0.0-4.0); HEMATOCRIT 34.6 % (34.0-47.0); LYMPH # 2.1 K/uL (1.0-4.3); LYMPH % 24.7 % (20.0-40.0); MEAN CELL VOLUME 88.3 fl (81.0-99.0); MEAN CORPUSCULAR HEMOGLOBIN 28.9 pg (27.0-31.0); MEAN CORPUSCULAR HGB CONC 32.8 g/dL (33.0-37.0); MEAN PLATELET VOLUME 7.2 fl (7.2-11.7); MONO # 0.7 K/uL (0.0-0.8); MONO % 8.1 % (0.0-10.0); NEUT # 5.4 K/uL (1.8-7.0); NEUT % 64.9 % (50.0-75.0); RED CELL DISTRIBUTION WIDTH 13.9 % (11.5-14.5); WHITE BLOOD COUNT 8.3 K/uL (4.8-10.8)
[2017-05-19 12:46] LABS: ALB/GLOB RATIO 0.9 (1.0-2.1); ALKALINE PHOSPHATASE 180 U/L (38-126); ALT/SGPT 44 U/L (9-52); AST/SGOT 43 U/L (14-36); BILIRUBIN,TOTAL 0.9 mg/dl (0.2-1.3); BLOOD UREA NITROGEN 8 mg/dl (7-17); CALCIUM 9.1 mg/dL (8.4-10.2); CARBON DIOXIDE 26 mmol/L (22-30); CHLORIDE 98 mmol/L (98-107); GFR AFRICAN-AMERICAN > 60; GLUCOSE,RANDOM 150 mg/dL (65-105); LIPASE 211 U/L (23-300); POTASSIUM 4.3 MMOL/L (3.6-5.0); SODIUM 136 mmol/l (132-148); TOTAL PROTEIN 7.7 G/DL (6.3-8.2)
[2017-05-19 13:38] VITALS: BP 125/68; PULSE 82; TEMP 99; O2SAT 99
== END 2017-05-19 13:41 | disposition home or self-care (01) ==
LOC: H.ER 11:27
DX: R10.9 Unspecified abdominal pain (principal)
CPT/HCPCS: 80053; 83690; 85025; 96360; 99282; J7040